=== PATIENT | female | born 1945 ===

== ENCOUNTER 2017-09-04 12:58 | Inpatient (IN) | payer MEDICARE ==
[2017-09-04 14:41] VITALS: BMI 22.6
--- NOTE | 2017-09-04 21:13 | CP.PCM.HP ---
History of Present Illness - History of Present Illness History of Present Illness: CC: CVA HPI: This is a 71 y/o female with HTN, DM2, HLD and gastritis who comes from [facility], where she was admitted 08/29/2017 for what appears to be acute R pontine infarction with L sided LUE/LE weakness. Briefly, she came to the ER c/ o SANTILLAN/dizziness/L sided weakness/numbess. She did not received TPA, but was started on Plavix and Lipitor. Patient has no complaints currently -- denies CP/ SOB/f/c/n/v/d. ROS: 14 pt. ROS performed, negative other than HPI MHx: HTN, DM2, HLD, gastritis SHx: Hysterectomy Allergies: ASA Medications: as per med list Family Hx: reviewed, noncontrib Social Hx: Lives at home, no tobacco, no EtOH Surrogate: brother, info on chart MRI, carotids and echo in chart from [facility]; Present on Admission - Present on Admission Any Indicators Present on Admission: No Past Patient History - Infectious Disease Hx of Infectious Diseases: None - Past Medical History & Family History Past Medical History?: Yes - Past Social History Smoking Status: Never Smoked - CARDIAC Hx Hypercholesterolemia: Yes Hx Hypertension: Yes - PULMONARY Hx Respiratory Disorders: No - NEUROLOGICAL Hx Neurological Disorder: No - HEENT Hx HEENT Problems: No - RENAL Hx Chronic Kidney Disease: No - ENDOCRINE/METABOLIC Hx Diabetes Mellitus Type 2: Yes (NIDDM) - HEMATOLOGICAL/ONCOLOGICAL Hx Blood Disorders: No - INTEGUMENTARY Hx Dermatological Problems: Yes Other/Comment: 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 - MUSCULOSKELETAL/RHEUMATOLOGICAL Hx Musculoskeletal Disorders: No - GASTROINTESTINAL Hx Gastritis: Yes - GENITOURINARY/GYNECOLOGICAL Hx Genitourinary Disorders: No - PSYCHIATRIC Hx Psychophysiologic Disorder: No Hx Substance Use: No - SURGICAL HISTORY Hx Hysterectomy: Yes Other/Comment: CYST REMOVED RIGHT LEG - ANESTHESIA Hx Anesthesia: Yes Hx Anesthesia Reactions: No Hx Malignant Hyperthermia: No Meds Allergies/Adverse Reactions: Allergies Allergy/AdvReac Type Severity Reaction Status Date / Time aspirin AdvReac Intermediate ITCHING Verified 09/04/17 20:11 Physical Exam - Constitutional Appears: No Acute Distress - Head Exam Head Exam: ATRAUMATIC, NORMOCEPHALIC - Eye Exam Eye Exam: EOMI, PERRL - ENT Exam ENT Exam: Mucous Membranes Moist - Neck Exam Neck exam: Positive for: Full Rom - Respiratory Exam Respiratory Exam: Clear to Auscultation Bilateral, NORMAL BREATHING PATTERN - Cardiovascular Exam Cardiovascular Exam: REGULAR RHYTHM, +S1, +S2 - GI/Abdominal Exam GI & Abdominal Exam: Normal Bowel Sounds, Soft - Extremities Exam Additional comments: strength 0-1/5 in LUE and LLE - Neurological Exam Neurological exam: Alert, CN II-XII Intact, Oriented x3 Additional comments: L sided deficits as noted - Psychiatric Exam Psychiatric exam: Normal Affect, Normal Mood - Skin Skin Exam: Dry, Warm Assessment & Plan (1) Acute CVA (cerebrovascular accident) Assessment and Plan: 71 y/o female with acute R sided CVA with L sided deficits. 1) Acute CVA -Cont Plavix, Statin -PT/OT -Rehab consult -Consider neuro consult for f/u [facility] 2) HTN -- cont current medical regimen from [place] 3) DM2 -Cont LA/SSI regimen with qid ACHS accuchecks -DM diet -Can transition to oral hypoglycemics if patient is taking PO consistently over next few days 4) DVT PPx -- SQ Lovenox Status: Acute (2) HTN (hypertension) Status: Acute (3) DM2 (diabetes mellitus, type 2) Status: Acute (4) HLD (hyperlipidemia) Status: Acute (5) DVT prophylaxis Status: Acute
[2017-09-04] MEDS ORDERED: Patient's Own Med (Famotidine [Pepcid] 40 MG) PO SCH (22:00)
[2017-09-04] MEDS: Insulin Lispro (humaLOG) 100 Units/ml Inj SC SCH (23:17)
[2017-09-05] MEDS: Insulin Lispro (humaLOG) 100 Units/ml Inj SC SCH ×4 (07:30→21:41)
[2017-09-05] MEDS: Enoxaparin 40 mg Syringe SC SCH (08:38)
[2017-09-05] MEDS ORDERED: Patient's Own Med (Insulin Detemir [Levemir] 10 UNIT) SC SCH (09:00)
[2017-09-05] MEDS: Insulin Detemir 100 Units/ml Inj SC SCH (10:00)
--- NOTE | 2017-09-05 12:35 | PCM.OPOC ---
Physiatry Overall Plan of Care - Overall Plan of Care Estimated Length of Stay in Weeks: 3 Rehab Impairment: Mobility, Gait, Cognition, Speech, Balance, Coordination Etiologic Diagnosis: Cerebrovascular Accident - Anticipated Interventions Physical Therapy:: Yes Occupational Therapy:: Yes Speech Therapy:: Yes Recreational Therapy:: Yes - Therapy Goals Bed Mobility: Independent Ambulation: Independent Functional Positional Changes:: Independent - Discharge Plan Identification of Barriers to Discharge: Home Situation Discharge Destination: Home
--- NOTE | 2017-09-05 12:38 | CP.PCM.PN ---
Subjective - Date & Time of Evaluation Date of Evaluation: 09/05/17 Time of Evaluation: 10:30 - Subjective Subjective: no acute complaints at present Objective - Vital Signs/Intake and Output Vital Signs (last 24 hours): Temp Pulse Resp BP Pulse Ox 97.5 F L 72 20 143/60 98 09/05/17 08:05 09/05/17 09:21 09/05/17 08:05 09/05/17 09:21 09/05/17 08:05 - Medications Medications: Current Medications Acetaminophen (Tylenol 325mg Tab) 650 mg PO Q6H PRN PRN Reason: Pain, moderate (4-7) Amlodipine Besylate (Norvasc) 10 mg PO DAILY [facility] Last Admin: 09/05/17 08:37 Dose: 10 mg Atorvastatin Calcium (Lipitor) 80 mg PO DIN [facility] Clonidine HCl (Catapres-Tts3 0.3 Mg/24 Hr) 1 patch TD Q7D [facility] Clopidogrel Bisulfate (Plavix) 75 mg PO DAILY [facility] Last Admin: 09/05/17 08:38 Dose: 75 mg Enoxaparin Sodium (Lovenox) 40 mg SC DAILY [facility] PRN Reason: Protocol Last Admin: 09/05/17 08:38 Dose: 40 mg Famotidine (Pepcid) 40 mg PO HS [facility] Last Admin: 09/04/17 22:57 Dose: 40 mg Hydrochlorothiazide (Hydrodiuril) 50 mg PO DAILY [facility] Last Admin: 09/05/17 09:22 Dose: 50 mg Insulin Detemir (Levemir) 10 units SC DAILY [facility] Last Admin: 09/05/17 10:00 Dose: 10 units Insulin Human Lispro (Humalog) 0 units SC [facility] PRN Reason: Protocol Last Admin: 09/05/17 11:32 Dose: 3 units Loratadine (Claritin) 10 mg PO DAILY [facility] Last Admin: 09/05/17 08:40 Dose: 10 mg Losartan Potassium (Cozaar) 100 mg PO DAILY [facility] Last Admin: 09/05/17 09:21 Dose: 100 mg Metoprolol Tartrate (Lopressor) 50 mg PO TID [facility] Last Admin: 09/05/17 08:38 Dose: 50 mg Montelukast Sodium (Singulair) 10 mg PO HS [facility] Last Admin: 09/04/17 22:57 Dose: 10 mg Olopatadine HCl (Patanol 0.1% Opht Soln) 2 drop OU TID PRN PRN Reason: Allergy symptoms - Head Exam Head Exam: ATRAUMATIC, NORMAL INSPECTION, NORMOCEPHALIC - Eye Exam Eye Exam: EOMI, Normal appearance, PERRL Pupil Exam: NORMAL ACCOMODATION - ENT Exam ENT Exam: Mucous Membranes Moist, Normal Exam - Neck Exam Neck Exam: Normal Inspection - Respiratory Exam Respiratory Exam: NORMAL BREATHING PATTERN - Cardiovascular Exam Cardiovascular Exam: REGULAR RHYTHM - GI/Abdominal Exam GI & Abdominal Exam: Soft, Normal Bowel Sounds - Rectal Exam Rectal Exam: NORMAL INSPECTION - Exam External exam: NORMAL EXTERNAL EXAM - Extremities Exam Extremities Exam: Full ROM, Normal Capillary Refill - Back Exam Back Exam: NORMAL INSPECTION - Neurological Exam Neurological Exam: Alert, Awake Neuro motor strength exam: Left Upper Extremity: 2/1, Right Upper Extremity: 3, Left Lower Extremity: 2/1, Right Lower Extremity: 3 - Psychiatric Exam Psychiatric exam: Normal Affect, Normal Mood - Skin Skin Exam: Dry, Intact Assessment and Plan (1) Acute CVA (cerebrovascular accident) Assessment & Plan: plan for physical, occupational, rec and speech therapy Status: Acute (2) Contusion Status: Acute (3) Contusion, hip Status: Acute (4) Diabetes mellitus with hyperglycemia Status: Acute (5) DM2 (diabetes mellitus, type 2) Status: Acute (6) DVT prophylaxis Status: Acute (7) Fracture of bone Status: Acute (8) Hemiparesis affecting left side as late effect of cerebrovascular accident Status: Acute (9) HLD (hyperlipidemia) Status: Acute (10) HTN (hypertension) Status: Acute
--- NOTE | 2017-09-05 12:40 | CP.PCM.CON ---
History of Present Illness - History of Present Illness History of Present Illness: 71 year old female with acute CVA admitted for acute rehab, status post dizziness and left sided weakness Review of Systems - Neurological Neurological: Abnormal Gait, Dizziness, Weakness Past Patient History - Infectious Disease Hx of Infectious Diseases: None - Past Medical History & Family History Past Medical History?: Yes - Past Social History Smoking Status: Never Smoked - CARDIAC Hx Hypertension: Yes - PULMONARY Hx Respiratory Disorders: No - NEUROLOGICAL Hx Neurological Disorder: Yes HX Cerebrovascular Accident: Yes - HEENT Hx HEENT Problems: Yes Other/Comment: hx right eye surgery-macular - RENAL Hx Chronic Kidney Disease: No - ENDOCRINE/METABOLIC Hx Diabetes Mellitus Type 2: Yes - HEMATOLOGICAL/ONCOLOGICAL Hx AIDS: No Hx Human Immunodeficiency Virus (HIV): No Other/Comment: hx of Leucocytosis - INTEGUMENTARY Hx Dermatological Problems: Yes Other/Comment: 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 - MUSCULOSKELETAL/RHEUMATOLOGICAL Hx Falls: Yes (2005;July 2017) - GASTROINTESTINAL Hx Gastrointestinal Disorders: Yes Hx Gastritis: Yes - GENITOURINARY/GYNECOLOGICAL Hx Genitourinary Disorders: No - PSYCHIATRIC Hx Psychophysiologic Disorder: No Hx Substance Use: No - SURGICAL HISTORY Hx Hysterectomy: Yes Other/Comment: pus removed from left leg - ANESTHESIA Hx Anesthesia: Yes Hx Anesthesia Reactions: No Hx Malignant Hyperthermia: No Meds Allergies/Adverse Reactions: Allergies Allergy/AdvReac Type Severity Reaction Status Date / Time aspirin AdvReac Intermediate ITCHING Verified 09/04/17 20:11 - Medications Medications: Current Medications Acetaminophen (Tylenol 325mg Tab) 650 mg PO Q6H PRN PRN Reason: Pain, moderate (4-7) Amlodipine Besylate (Norvasc) 10 mg PO DAILY [facility] Last Admin: 09/05/17 08:37 Dose: 10 mg Atorvastatin Calcium (Lipitor) 80 mg PO DIN [facility] Clonidine HCl (Catapres-Tts3 0.3 Mg/24 Hr) 1 patch TD Q7D [facility] Clopidogrel Bisulfate (Plavix) 75 mg PO DAILY [facility] Last Admin: 09/05/17 08:38 Dose: 75 mg Enoxaparin Sodium (Lovenox) 40 mg SC DAILY [facility] PRN Reason: Protocol Last Admin: 09/05/17 08:38 Dose: 40 mg Famotidine (Pepcid) 40 mg PO HS [facility] Last Admin: 09/04/17 22:57 Dose: 40 mg Hydrochlorothiazide (Hydrodiuril) 50 mg PO DAILY [facility] Last Admin: 09/05/17 09:22 Dose: 50 mg Insulin Detemir (Levemir) 10 units SC DAILY [facility] Last Admin: 09/05/17 10:00 Dose: 10 units Insulin Human Lispro (Humalog) 0 units SC ACHS [facility] PRN Reason: Protocol Last Admin: 09/05/17 11:32 Dose: 3 units Loratadine (Claritin) 10 mg PO DAILY [facility] Last Admin: 09/05/17 08:40 Dose: 10 mg Losartan Potassium (Cozaar) 100 mg PO DAILY [facility] Last Admin: 09/05/17 09:21 Dose: 100 mg Metoprolol Tartrate (Lopressor) 50 mg PO TID [facility] Last Admin: 09/05/17 08:38 Dose: 50 mg Montelukast Sodium (Singulair) 10 mg PO HS [facility] Last Admin: 09/04/17 22:57 Dose: 10 mg Olopatadine HCl (Patanol 0.1% Opht Soln) 2 drop OU TID PRN PRN Reason: Allergy symptoms Physical Exam - Head Exam Head Exam: ATRAUMATIC, NORMAL INSPECTION, NORMOCEPHALIC - Eye Exam Eye Exam: EOMI, Normal appearance, PERRL Pupil Exam: NORMAL ACCOMODATION - ENT Exam ENT Exam: Mucous Membranes Moist, Normal Exam - Respiratory Exam Respiratory Exam: Clear to Auscultation Bilateral, NORMAL BREATHING PATTERN - Cardiovascular Exam Cardiovascular Exam: REGULAR RHYTHM - GI/Abdominal Exam GI & Abdominal Exam: Normal Bowel Sounds - Exam External exam: NORMAL EXTERNAL EXAM - Extremities Exam Extremities exam: Positive for: normal inspection - Back Exam Back exam: NORMAL INSPECTION - Neurological Exam Neurological exam: Alert, CN II-XII Intact Additional comments: left sided weakness, flaccid and muscle strenght 2/5 also has speech needs. - Psychiatric Exam Psychiatric exam: Normal Affect, Normal Mood - Skin Skin Exam: Dry, Intact Results - Vital Signs Recent Vital Signs: Last Vital Signs Temp 97.5 F L 09/05/17 08:05 Pulse 72 09/05/17 09:21 Resp 20 09/05/17 08:05 BP 143/60 09/05/17 09:21 Pulse Ox 98 09/05/17 08:05 - Labs Labs: Laboratory Results - last 24 hr 09/04/17 09/05/17 22:18 05:35 POC Glucose (mg/dL) 189 H 244 H Assessment & Plan (1) Acute CVA (cerebrovascular accident) Assessment and Plan: plan for physical, occupational, rec and speech therapy program Status: Acute (2) Contusion Status: Acute (3) Contusion, hip Status: Acute (4) Diabetes mellitus with hyperglycemia Status: Acute (5) DM2 (diabetes mellitus, type 2) Status: Acute (6) DVT prophylaxis Status: Acute (7) Fracture of bone Status: Acute (8) Hemiparesis affecting left side as late effect of cerebrovascular accident Status: Acute (9) HLD (hyperlipidemia) Status: Acute (10) HTN (hypertension) Status: Acute
[2017-09-05] MEDS ORDERED: Patient's Own Med (Atorvastatin [Lipitor] 80 MG) PO SCH (17:00)
[2017-09-06] MEDS: Insulin Lispro (humaLOG) 100 Units/ml Inj SC SCH ×4 (07:29→21:31)
[2017-09-06] MEDS: Enoxaparin 40 mg Syringe SC SCH (08:28)
[2017-09-06] MEDS: Insulin Detemir 100 Units/ml Inj SC SCH (08:30)
[2017-09-06] MEDS: Olopatadine 0.1% Opht SOLN OU PRN (08:39)
--- NOTE | 2017-09-06 09:45 | CP.PCM.CON ---
History of Present Illness - History of Present Illness History of Present Illness: Pt is a 71 year old female admitted to [facility] following a CVA. Pt reported a second CVA when in the ER and past CVA's. Med history also positive for DM, HTN,. Social History: Pt lives in [place] with a roommate. Pt is and she has one son. Pt reported positive relationships with her three brothers and 1 sister. Her brother resides in [place]- others in the [facility]. Ed/Voc: pt raised in the [facility], college graduate, worked for [employer]. Psych- Pt reported past intervention due to marital tensions in the 1979:s, no history of alc/sub abuse, no recent treatment. 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 MSE: Pt alert, oriented x3, relevat/coherent, no psychosis, affect constricted, mood depressed/anxious, no si no hi ideation. pt tearful over current status and dependency, cognitive strategies introduced/reviewed to reduce distress. Dx: Adjustment dx with Anxiety and Depression plan: Continued Sup therapy Past Patient History - Infectious Disease Hx of Infectious Diseases: None - Past Medical History & Family History Past Medical History?: Yes - Past Social History Smoking Status: Never Smoked - CARDIAC Hx Hypertension: Yes - PULMONARY Hx Respiratory Disorders: No - NEUROLOGICAL Hx Neurological Disorder: Yes HX Cerebrovascular Accident: Yes - HEENT Hx HEENT Problems: Yes Other/Comment: hx right eye surgery-macular - RENAL Hx Chronic Kidney Disease: No - ENDOCRINE/METABOLIC Hx Diabetes Mellitus Type 2: Yes - HEMATOLOGICAL/ONCOLOGICAL Hx AIDS: No Hx Human Immunodeficiency Virus (HIV): No Other/Comment: hx of Leucocytosis - INTEGUMENTARY Hx Dermatological Problems: Yes Other/Comment: 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 - MUSCULOSKELETAL/RHEUMATOLOGICAL Hx Falls: Yes (2005;July 2017) - GASTROINTESTINAL Hx Gastrointestinal Disorders: Yes Hx Gastritis: Yes - GENITOURINARY/GYNECOLOGICAL Hx Genitourinary Disorders: No - PSYCHIATRIC Hx Psychophysiologic Disorder: No Hx Substance Use: No - SURGICAL HISTORY Hx Hysterectomy: Yes Other/Comment: pus removed from left leg - ANESTHESIA Hx Anesthesia: Yes Hx Anesthesia Reactions: No Hx Malignant Hyperthermia: No Meds Allergies/Adverse Reactions: Allergies Allergy/AdvReac Type Severity Reaction Status Date / Time aspirin AdvReac Intermediate ITCHING Verified 09/04/17 20:11 - Medications Medications: Current Medications Acetaminophen (Tylenol 325mg Tab) 650 mg PO Q6H PRN PRN Reason: Pain, moderate (4-7) Last Admin: 09/05/17 16:26 Dose: 650 mg Amlodipine Besylate (Norvasc) 10 mg PO DAILY [facility] Last Admin: 09/06/17 08:29 Dose: 10 mg Atorvastatin Calcium (Lipitor) 80 mg PO DIN [facility] Last Admin: 09/05/17 16:28 Dose: 80 mg Clonidine HCl (Catapres-Tts3 0.3 Mg/24 Hr) 1 patch TD Q7D [facility] Last Admin: 09/05/17 12:00 Dose: 1 patch Clopidogrel Bisulfate (Plavix) 75 mg PO DAILY [facility] Last Admin: 09/06/17 08:29 Dose: 75 mg Enoxaparin Sodium (Lovenox) 40 mg SC DAILY [facility] PRN Reason: Protocol Last Admin: 09/06/17 08:28 Dose: 40 mg Famotidine (Pepcid) 40 mg PO [facility] Last Admin: 09/05/17 21:36 Dose: 40 mg Hydrochlorothiazide (Hydrodiuril) 50 mg PO DAILY [facility] Last Admin: 09/06/17 08:32 Dose: 50 mg Insulin Detemir (Levemir) 10 units SC DAILY [facility] Last Admin: 09/06/17 08:30 Dose: 10 units Insulin Human Lispro (Humalog) 0 units SC ACHS [facility] PRN Reason: Protocol Last Admin: 09/06/17 07:29 Dose: 2 units Loratadine (Claritin) 10 mg PO DAILY [facility] Last Admin: 09/06/17 08:31 Dose: 10 mg Losartan Potassium (Cozaar) 100 mg PO DAILY [facility] Last Admin: 09/06/17 08:32 Dose: 100 mg Metoprolol Tartrate (Lopressor) 50 mg PO TID [facility] Last Admin: 09/06/17 08:29 Dose: 50 mg Montelukast Sodium (Singulair) 10 mg PO HS [facility] Last Admin: 09/05/17 21:36 Dose: 10 mg Olopatadine HCl (Patanol 0.1% Opht Soln) 2 drop OU TID PRN PRN Reason: Allergy symptoms Last Admin: 09/06/17 08:39 Dose: 2 % Results - Vital Signs Recent Vital Signs: Last Vital Signs Temp 97.3 F L 09/06/17 07:56 Pulse 69 09/06/17 08:32 Resp 20 09/06/17 07:56 BP 150/60 09/06/17 08:32 Pulse Ox 97 09/06/17 07:56 - Labs Labs: Laboratory Results - last 24 hr 09/05/17 09/05/17 09/05/17 10:57 15:31 21:26 POC Glucose (mg/dL) 274 H 234 H 231 H 09/06/17 06:41 POC Glucose (mg/dL) 230 H
[2017-09-07] MEDS: Insulin Lispro (humaLOG) 100 Units/ml Inj SC SCH ×4 (07:07→21:30)
[2017-09-07] MEDS: Insulin Detemir 100 Units/ml Inj SC SCH (09:07)
[2017-09-07] MEDS: Enoxaparin 40 mg Syringe SC SCH (09:08)
--- NOTE | 2017-09-07 10:32 | CP.PCM.PN ---
Subjective - Date & Time of Evaluation Date of Evaluation: 09/07/17 Time of Evaluation: 10:32 - Subjective Subjective: patient participating in PT OT well HD stable nad no cp sob calf tenderness Objective - Vital Signs/Intake and Output Vital Signs (last 24 hours): Temp Pulse Resp BP Pulse Ox 97.7 F 72 19 138/56 L 97 09/07/17 09:03 09/07/17 09:08 09/07/17 09:03 09/07/17 09:08 09/07/17 09:03 Constitutional- cooperative, awake, alert. Head- NCAT, PERRL Eye- PERRL, normal accommodation ENT- normal exam, MMM. Neck- normal inspection, supple, no JVD Respiratory- CTAB, no wheezes rales rhonchi Cardiovascular- RRR, +S1, +S2 no MRG GI/Abdominal- normal bowel sounds, soft Skin- warm, dry Extremities Exam- normal capillary refill, normal inspection Neurological Exam- alert, oriented Psych- normal mood, normal affect - Medications Medications: Current Medications Acetaminophen (Tylenol 325mg Tab) 650 mg PO Q6H PRN PRN Reason: Pain, moderate (4-7) Last Admin: 09/06/17 23:10 Dose: 650 mg Amlodipine Besylate (Norvasc) 10 mg PO DAILY [facility] Last Admin: 09/07/17 09:08 Dose: 10 mg Atorvastatin Calcium (Lipitor) 80 mg PO HS [facility] Clonidine HCl (Catapres-Tts3 0.3 Mg/24 Hr) 1 patch TD Q7D [facility] Last Admin: 09/05/17 12:00 Dose: 1 patch Clopidogrel Bisulfate (Plavix) 75 mg PO DAILY [facility] Last Admin: 09/07/17 09:08 Dose: 75 mg Enoxaparin Sodium (Lovenox) 40 mg SC DAILY [facility] PRN Reason: Protocol Last Admin: 09/07/17 09:08 Dose: 40 mg Famotidine (Pepcid) 40 mg PO HS [facility] Last Admin: 09/06/17 21:30 Dose: 40 mg Hydrochlorothiazide (Hydrodiuril) 50 mg PO DAILY [facility] Last Admin: 09/07/17 09:06 Dose: 50 mg Insulin Detemir (Levemir) 10 units SC DAILY [facility] Last Admin: 09/07/17 09:07 Dose: 10 units Insulin Human Lispro (Humalog) 0 units SC ACHS [facility] PRN Reason: Protocol Last Admin: 09/07/17 07:07 Dose: 2 units Loratadine (Claritin) 10 mg PO DAILY [facility] Last Admin: 09/07/17 09:05 Dose: 10 mg Losartan Potassium (Cozaar) 100 mg PO DAILY [facility] Last Admin: 09/07/17 09:06 Dose: 100 mg Metoprolol Tartrate (Lopressor) 50 mg PO Q8 [facility] Montelukast Sodium (Singulair) 10 mg PO HS [facility] Last Admin: 09/06/17 21:30 Dose: 10 mg Olopatadine HCl (Patanol 0.1% Opht Soln) 2 drop OU TID PRN PRN Reason: Allergy symptoms Last Admin: 09/06/17 08:39 Dose: 2 % Assessment and Plan - Assessment and Plan (Free Text) Plan: 71 y/o female with acute R sided CVA with L sided deficits. 1) Acute CVA -Cont Plavix, Statin -PT/OT -Rehab consult -Consider neuro consult for f/u [facility] 2) HTN -cont current medical regimen from [place] 3) DM2 -Cont LA/SSI regimen with qid ACHS accuchecks -DM diet -restart oral antihypogycemics and levemir 4) DVT PPx - SQ Lovenox
--- NOTE | 2017-09-07 13:56 | CON ---
DATE: 09/07/2017 NEUROLOGY CONSULTATION CHIEF COMPLAINT: Left-sided weakness, status post right pontine infarct. HISTORY OF PRESENT ILLNESS: This is a 71-year-old woman who is well known to me from [facility] who I saw on 08/29/2017 and also before she got discharged to rehab at [facility], with past medical history of uncontrolled type 2 diabetes, dyslipidemia, and hypertension, who initially presented to [facility] with transient left arm weakness and leg weakness and numbness and dysarthria, found to have hypertensive urgency with systolic blood pressure more than 200, underwent blood pressure control. Blood pressure throughout the hospital was very permissive and therefore was slowly brought down by Cardiology with blood pressure medication adjustments and she had an MRI of the brain causing an acute right parasagittal mid pontine infarct. Her carotid Doppler was 40% to 59% proximal bilateral ICA stenosis with vertebral artery. Her A1c at that time was 7.6. Currently, she is on aspirin, Plavix, and atorvastatin of 80 mg for stroke prevention in acute rehab at [facility] for left-sided weakness for PT and OT. No acute events overnight. PAST MEDICAL HISTORY: History of type 2 diabetes mellitus, hypertension, and dyslipidemia. REVIEW OF SYSTEMS: A 14-point review of systems negative except in the HPI. SOCIAL HISTORY: No illicit drug use, smoking, or EtOH abuse. FAMILY HISTORY: Noncontributory. PHYSICAL EXAMINATION: VITAL SIGNS: Temperature 97.2, pulse rate of 72, blood pressure 138/56, respiratory rate of 19, oxygen saturation of 97% by room air. GENERAL: The patient is sitting up in bed, in no acute distress. HEENT: Head is atraumatic and normocephalic. PERRLA. Extraocular muscles are intact. NECK: Supple. No JVD. No adenopathy noted. LUNGS: Clear to auscultation. No adventitious sounds. HEART: S1 and S2. Normal rate and rhythm. No murmurs, rubs, or gallops. ABDOMEN: Soft, nontender, and nondistended. Bowel sounds are present. EXTREMITIES: No clubbing. No cyanosis. Peripheral pulses 2+ bilaterally. NEUROLOGIC: The patient is alert and oriented to person, place, month, and year. Speech is fluent without any errors slight dysarthria. Cranial nerves II through XII are intact except for some mild left nasolabial fold flattening. Motor: Right side intact. Left upper and lower extremities 4/5. Toes are upgoing bilaterally. Sensory: Decreased light touch and pinprick up to the calves bilaterally. Decreased vibration of the toes. DTRs are 2+ throughout, 1 at both knees and ankles. Coordination: [id number] intact on the right, but difficult on the left due to left upper extremity weakness. Gait is deferred for now. LABORATORY DATA: Today's labs, blood sugar is 288. ASSESSMENT AND PLAN: This is a 71-year-old woman with past medical history of type 2 diabetes mellitus, dyslipidemia, and hypertension who presented to [facility] with left arm and left leg weakness and numbness and dysarthria, found to have hypertensive urgency with systolic blood pressure more than 200 which was eventually brought down with various blood pressure medications per Cardiology and patient was found to have an acute right parasagittal large mid pontine infarct which was secondary to diffuse atherosclerotic disease and uncontrolled hypertension. At this time, she has residual left-sided weakness and needs acute rehab at [facility]. At this time, we recommend: 1. Continue with aspirin 81 and Plavix 75 mg and atorvastatin 80 mg for stroke prevention. 2. Diabetic diet to keep blood sugar between 140 to 180. 3. Keep blood pressure between 120 to 130 mmHg and continue with her clonidine and Norvasc dosages. At this time, continue with PT and OT and acute rehab. Thank you for this consult. Benigno Jennings MD
[2017-09-07 19:15] LABS: SQUAMOUS EPITHIAL < 1 /hpf (0-5); URINE BACTERIA RARE (<OCC); URINE BILIRUBIN NEGATIVE (NEGATIVE); URINE BLOOD NEGATIVE (NEGATIVE); URINE CLARITY SLIGHTY-CLOUDY (Clear); URINE COLOR STRAW (YELLOW); URINE GLUCOSE (UA) 150 mg/dL (Normal); URINE LEUKOCYTE ESTERASE NEG Leu/uL (Negative); URINE NITRATE NEGATIVE (NEGATIVE); URINE PROTEIN NEGATIVE (NEGATIVE); URINE UROBILINOGEN 0.2-1.0 mg/dL (0.2-1.0)
[2017-09-08 06:12] LABS: HEMOGLOBIN 12.9 g/dL (12.0-16.0); MEAN CELL VOLUME 87.5 fl (81.0-99.0); MEAN CORPUSCULAR HEMOGLOBIN 28.8 pg (27.0-31.0); RBC 4.49 Mil/uL (3.80-5.20); RED CELL DISTRIBUTION WIDTH 13.5 % (11.5-14.5); WHITE BLOOD COUNT 7.6 K/uL (4.8-10.8)
[2017-09-08 06:24] LABS: BLOOD UREA NITROGEN 23 mg/dl (7-17); CALCIUM 9.2 mg/dL (8.4-10.2); GFR AFRICAN-AMERICAN > 60; GFR NON-AFRICAN AMERICAN > 60
[2017-09-08] MEDS: Insulin Lispro (humaLOG) 100 Units/ml Inj SC SCH ×4 (06:40→21:07)
[2017-09-08] MEDS: Enoxaparin 40 mg Syringe SC SCH (08:45)
[2017-09-08] MEDS: Insulin Detemir 100 Units/ml Inj SC SCH (08:48)
[2017-09-08] MEDS ORDERED: Potassium Chloride 20 mEq ER Tab PO ONE (20:30)
[2017-09-09] MEDS: Insulin Lispro (humaLOG) 100 Units/ml Inj SC SCH ×4 (06:49→21:27)
[2017-09-09] MEDS: Insulin Detemir 100 Units/ml Inj SC SCH ×2 (08:35→21:26)
[2017-09-09] MEDS: Enoxaparin 40 mg Syringe SC SCH (08:36)
--- NOTE | 2017-09-09 10:40 | CP.PCM.PN ---
Subjective - Date & Time of Evaluation Date of Evaluation: 09/09/17 Time of Evaluation: 10:39 - Subjective Subjective: TOLERATING THERAPY WELL NO COMPLAINTS AT THIS TIME NO CP SOB CALF TENDERNESS HD STABLE NAD Objective - Vital Signs/Intake and Output Vital Signs (last 24 hours): Temp Pulse Resp BP Pulse Ox 97.9 F 59 L 20 140/59 L 98 09/09/17 08:29 09/09/17 08:37 09/09/17 08:29 09/09/17 08:37 09/09/17 08:29 Constitutional- cooperative, awake, alert. Head- NCAT, PERRL Eye- PERRL, normal accommodation ENT- normal exam, MMM. Neck- normal inspection, supple, no JVD Respiratory- CTAB, no wheezes rales rhonchi Cardiovascular- RRR, +S1, +S2 no MRG GI/Abdominal- normal bowel sounds, soft Skin- warm, dry Extremities Exam- normal capillary refill, normal inspection Neurological Exam- alert, oriented Psych- normal mood, normal affect - Medications Medications: Current Medications Acetaminophen (Tylenol 325mg Tab) 650 mg PO Q6H PRN PRN Reason: Pain, moderate (4-7) Last Admin: 09/08/17 20:51 Dose: 650 mg Amlodipine Besylate (Norvasc) 10 mg PO DAILY [facility] Last Admin: 09/09/17 08:37 Dose: 10 mg Atorvastatin Calcium (Lipitor) 80 mg PO HS [facility] Last Admin: 09/08/17 21:08 Dose: 80 mg Clonidine HCl (Catapres-Tts3 0.3 Mg/24 Hr) 1 patch TD Q7D [facility] Last Admin: 09/05/17 12:00 Dose: 1 patch Clopidogrel Bisulfate (Plavix) 75 mg PO DAILY [facility] Last Admin: 09/09/17 08:37 Dose: 75 mg Enoxaparin Sodium (Lovenox) 40 mg SC DAILY [facility] PRN Reason: Protocol Last Admin: 09/09/17 08:36 Dose: 40 mg Famotidine (Pepcid) 40 mg PO HS [facility] Last Admin: 09/08/17 21:08 Dose: 40 mg Hydrochlorothiazide (Hydrodiuril) 50 mg PO DAILY [facility] Last Admin: 09/09/17 08:35 Dose: 50 mg Insulin Detemir (Levemir) 10 units SC DAILY [facility] Last Admin: 09/09/17 08:35 Dose: 10 units Insulin Human Lispro (Humalog) 0 units SC [facility] PRN Reason: Protocol Last Admin: 09/09/17 06:49 Dose: 2 units Loratadine (Claritin) 10 mg PO DAILY [facility] Last Admin: 09/08/17 08:48 Dose: 10 mg Losartan Potassium (Cozaar) 100 mg PO DAILY [facility] Last Admin: 09/09/17 08:35 Dose: 100 mg Metoprolol Tartrate (Lopressor) 50 mg PO Q8 [facility] Last Admin: 09/09/17 06:48 Dose: 50 mg Montelukast Sodium (Singulair) 10 mg PO HS [facility] Last Admin: 09/08/17 21:08 Dose: 10 mg Olopatadine HCl (Patanol 0.1% Opht Soln) 2 drop OU TID PRN PRN Reason: Allergy symptoms Last Admin: 09/06/17 08:39 Dose: 2 % - Labs Labs: 09/08/17 05:45 09/08/17 05:45 Assessment and Plan - Assessment and Plan (Free Text) Plan: 71 y/o female with acute R sided CVA with L sided deficits. 1) Acute CVA -Cont Plavix, Statin -PT/OT -Rehab consult -Consider neuro consult for f/u Dick 2) HTN -cont current medical regimen from [place] 3) DM2 -Cont LA/SSI regimen with qid ACHS accuchecks -DM diet -restart oral antihypogycemics and levemir 4) DVT PPx - SQ Lovenox
--- NOTE | 2017-09-09 11:29 | CP.PCM.PN ---
Subjective - Date & Time of Evaluation Date of Evaluation: 09/08/17 Time of Evaluation: 19:00 - Subjective Subjective: still with left sided weakness Objective - Vital Signs/Intake and Output Vital Signs (last 24 hours): Temp Pulse Resp BP Pulse Ox 97.9 F 59 L 20 140/59 L 98 09/09/17 08:29 09/09/17 08:37 09/09/17 08:29 09/09/17 08:37 09/09/17 08:29 - Medications Medications: Current Medications Acetaminophen (Tylenol 325mg Tab) 650 mg PO Q6H PRN PRN Reason: Pain, moderate (4-7) Last Admin: 09/08/17 20:51 Dose: 650 mg Amlodipine Besylate (Norvasc) 10 mg PO DAILY [facility] Last Admin: 09/09/17 08:37 Dose: 10 mg Atorvastatin Calcium (Lipitor) 80 mg PO HS [facility] Last Admin: 09/08/17 21:08 Dose: 80 mg Clonidine HCl (Catapres-Tts3 0.3 Mg/24 Hr) 1 patch TD Q7D [facility] Last Admin: 09/05/17 12:00 Dose: 1 patch Clopidogrel Bisulfate (Plavix) 75 mg PO DAILY [facility] Last Admin: 09/09/17 08:37 Dose: 75 mg Enoxaparin Sodium (Lovenox) 40 mg SC DAILY [facility] PRN Reason: Protocol Last Admin: 09/09/17 08:36 Dose: 40 mg Famotidine (Pepcid) 40 mg PO [facility] Last Admin: 09/08/17 21:08 Dose: 40 mg Insulin Detemir (Levemir) 10 units SC HS [facility] Insulin Human Lispro (Humalog) 0 units SC [facility] PRN Reason: Protocol Last Admin: 09/09/17 06:49 Dose: 2 units Loratadine (Claritin) 10 mg PO DAILY [facility] Last Admin: 09/08/17 08:48 Dose: 10 mg Losartan Potassium (Cozaar) 100 mg PO DAILY [facility] Last Admin: 09/09/17 08:35 Dose: 100 mg Metformin HCl (Glucophage) 500 mg PO BID [facility] Metoprolol Tartrate (Lopressor) 50 mg PO Q8 [facility] Last Admin: 09/09/17 06:48 Dose: 50 mg Montelukast Sodium (Singulair) 10 mg PO [facility] Last Admin: 09/08/17 21:08 Dose: 10 mg Olopatadine HCl (Patanol 0.1% Opht Soln) 2 drop OU TID PRN PRN Reason: Allergy symptoms Last Admin: 09/06/17 08:39 Dose: 2 % Sitagliptin Phosphate (Januvia) 50 mg PO DAILY [facility] - Labs Labs: 09/08/17 05:45 09/08/17 05:45 - Head Exam Head Exam: ATRAUMATIC, NORMAL INSPECTION, NORMOCEPHALIC - Eye Exam Eye Exam: EOMI, Normal appearance, PERRL Pupil Exam: NORMAL ACCOMODATION - ENT Exam ENT Exam: Mucous Membranes Moist, Normal Exam - Neck Exam Neck Exam: Normal Inspection - Respiratory Exam Respiratory Exam: NORMAL BREATHING PATTERN - Cardiovascular Exam Cardiovascular Exam: REGULAR RHYTHM - GI/Abdominal Exam GI & Abdominal Exam: Soft, Normal Bowel Sounds - Rectal Exam Rectal Exam: NORMAL INSPECTION - Neurological Exam Neuro motor strength exam: Left Upper Extremity: 2/1, Right Upper Extremity: 3, Left Lower Extremity: 2/1, Right Lower Extremity: 3 - Psychiatric Exam Psychiatric exam: Normal Affect, Normal Mood - Skin Skin Exam: Dry, Intact Assessment and Plan (1) Acute CVA (cerebrovascular accident) Assessment & Plan: plan fo rphysical, occupational, speech therapy and rec therapy Status: Acute (2) Contusion Status: Acute (3) Contusion, hip Status: Acute (4) Diabetes mellitus with hyperglycemia Status: Acute (5) DM2 (diabetes mellitus, type 2) Status: Acute (6) DVT prophylaxis Status: Acute (7) Fracture of bone Status: Acute (8) Hemiparesis affecting left side as late effect of cerebrovascular accident Status: Acute (9) HLD (hyperlipidemia) Status: Acute (10) HTN (hypertension) Status: Acute
--- NOTE | 2017-09-09 12:22 | PSY.TMCNF ---
Nursing - Vital Signs Vital Signs (Last 8 hours): Vital Signs 09/09/17 09/09/17 09/09/17 06:48 08:29 08:35 Temperature 97.9 F Pulse Rate 69 59 L 59 L Respiratory 20 Rate Blood Pressure 161/60 H 140/59 L 140/59 L O2 Sat by Pulse 98 Oximetry 09/09/17 08:37 Temperature Pulse Rate 59 L Respiratory Rate Blood Pressure 140/59 L O2 Sat by Pulse Oximetry Pain: 0 - Medications/Other Issues Comment: Pt at moderate nutritional risk. goals: 1. Pt to consume 75-100% of meals. 2. Blood glucoses to be between 70-180 mg/dl. Follow-up due on 2017 - Bladder Management Bladder Pattern: Normal Voiding Method: Toilet, Bedpan, Diaper - Bowel Management Bowel Pattern: Normal - Goals/Time Frame Comments: Pt was seen following therapy session. Pt was agreeable to visit and was able to identify her leisure interests. 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 Pt reported that she enjoys singing. Pt's mood was stable-positive although flat at times. Pt would benefit from participating in recreation therapy sessions to improve mood state and arousal level. Physical Therapy - Bed Mobility Bed Mobility: Maximum Assistance - Transfers Wheelchair to Mat: Maximum Assistance Sit to Stand: Moderate Assistance - Ambulation Level of Assistance: Maximum Assistance Distance (ft.): 15 Comment: gait trials using R wallbar in hallway - Stair Negotiation Stairs: Level of Assistance: Not Tested - Standing Balance Static Stand: Moderate Assistance Dynamic Stand: Unable to assess/perform - Pain Pain (assessed during therapy session): 0 - Insight/Carryover Insight/Carryover: Good - Patient/Family Education Comment: Pt education provided for increased safety awareness and proper techniques during functional mobility training. - Assessment/Plan Assessment: Pt is actively participating in PT tx sessions focusing on BLE strengthening exercises, balance and endurance activities, and functional mobility training. Pt currently requires max A for bed mobility, max A for stand pivot transfers, mod A for sit < > stand transfers, max A for ambulating up to 15 ft. Pt is tolerating E-stim to LLE. Pt will continue to benefit from skilled PT intervention to address deficits, reduce fall risk, and maximize functional independence. - Goals Timeframe: 3 weeks Goals: Sit < > supine with CGA. Sit < > stand transfers CGA with quad cane. Bed < > chair transfers CGA. Pt will ambulate 100 ft with quad cane and min A - Provider Therapist: Tiffanie Do PT DPT License Number: [id number] Occupational Therapy - Arousal/Attention/Orientation Patient Orientation: Person, Place, Time, Appropriate to Age, Appropriate to Situation - ADL/IADL Self Feeding: Minimal Assistance Grooming: Moderate Assistance Dressing-Upper Extremity: Maximum Assistance Dressing-Lower Extremity: Maximum Assistance, Dependent - Sitting Balance Static Sitting: Contact Guard Assist Dynamic Sitting: Minimal Assistance Comment: seated unsupported at edge of bed - Transfers Wheelchair to Bed Transfers: Verbal Cues, Set-up Help, Moderate Assistance Toilet Transfers: Verbal Cues, Set-up Help, Moderate Assistance - Upper Extremity Status Right Upper Extremity Comment: AROM is WNLS; strength 4/5 Left Upper Extremity Comment: PROM IN LUE is WFLS; AROM limited by impiared strength--shoulder 2-/5, elbow flex/extension: 2-/5, supination/pronation 1/5, wrist 1/5, digits 1/5 to 2-/5 inconsistent. no subluxation - Pain Pain (assessed during therapy session): 0 - Insight/Carryover Insight/Carryover: Good - Patient/Family Education Comment: Pt education provided for increased safety awareness and proper techniques during functional mobility training. - Assessment/Plan Assessment: Pt is actively participating in PT tx sessions focusing on BLE strengthening exercises, balance and endurance activities, and functional mobility training. Pt currently requires max A for bed mobility, max A for stand pivot transfers, mod A for sit < > stand transfers, max A for ambulating up to 15 ft. Pt is tolerating E-stim to LLE. Pt will continue to benefit from skilled PT intervention to address deficits, reduce fall risk, and maximize functional independence. - Goals Timeframe: 3 weeks Goals: Sit < > supine with CGA. Sit < > stand transfers CGA with quad cane. Bed < > chair transfers CGA. Pt will ambulate 100 ft with quad cane and min A - Provider Therapist: HARJIT Abraham/Nasra License Number: [id number] Speech Therapy - Consult Information Patient on Program: Yes Medical Diagnosis: CVA Treatment Diagnosis: -mild cognitive linguistic deficits. -minimal dysarthria. -suspected mild pharyngeal dysphagia - Assessment Problem Solving Impairment: Mild Memory Impairment: Mild Speech/Articulation Impairment: Mild Comment: minimal dysarthria Dysphagia/Swallowing Impairment: Mild Comment: finely chopped solids/thin liquids requested by pt - Plan Assessment: Pt is actively participating in PT tx sessions focusing on BLE strengthening exercises, balance and endurance activities, and functional mobility training. Pt currently requires max A for bed mobility, max A for stand pivot transfers, mod A for sit < > stand transfers, max A for ambulating up to 15 ft. Pt is tolerating E-stim to LLE. Pt will continue to benefit from skilled PT intervention to address deficits, reduce fall risk, and maximize functional independence. - Provider Therapist: Maegan Sinclair License Number: [id number] Recreational Therapy - Participation Participation: Participates in Individual and/or Group Sessions - Attendance Attendance: 3-5 times per week - Activities Leisure Activities: Socializing - Socialization Level of Socialization: Initiates/interacts freely with care givers and peer - Diversional Time Diversional Time: talking on phone - Assessment Assessment/Plan: Pt is actively participating in PT tx sessions focusing on BLE strengthening exercises, balance and endurance activities, and functional mobility training. Pt currently requires max A for bed mobility, max A for stand pivot transfers, mod A for sit < > stand transfers, max A for ambulating up to 15 ft. Pt is tolerating E-stim to LLE. Pt will continue to benefit from skilled PT intervention to address deficits, reduce fall risk, and maximize functional independence. - Provider Therapist: Lamar Patel, VEHICLE PAINTER #[id number] Nutrition - Current Diet Current Diet/ Supplement/ Feedings: Mech altered(finely chopped) thin liquids moderate consistent CHO - Appetite Percent Meal Consumed: 75-100% - Assessment/Goals/Time Frame Assessment/Goals/Time Frame: Pt at moderate nutritional risk. goals: 1. Pt to consume 75-100% of meals. 2. Blood glucoses to be between 70-180 mg/dl. Follow-up due on 09/12/2017 - Provider Provider: Janie Middleton RD Case Management - Discharge Plan Discharge Plan: Home with significant other/family Rehabilitation Plan - Treatment Plan Treatment Plan: Physical Therapy, Occupational Therapy, Speech, Dietary, Patient /Family Education - Recommendation Recommendation: Physical Therapy, Occupational Therapy, Speech, Dietary, Patient /Family Education - Discharge Plan Discharge to: Home (29)
--- NOTE | 2017-09-09 13:00 | CP.PCM.PN ---
Subjective - Date & Time of Evaluation Date of Evaluation: 09/09/17 Time of Evaluation: 10:30 - Subjective Subjective: no acute neck pain mild shoulder weakness Objective - Vital Signs/Intake and Output Vital Signs (last 24 hours): Temp Pulse Resp BP Pulse Ox 97.9 F 59 L 20 140/59 L 98 09/09/17 08:29 09/09/17 08:37 09/09/17 08:29 09/09/17 08:37 09/09/17 08:29 - Medications Medications: Current Medications Acetaminophen (Tylenol 325mg Tab) 650 mg PO Q6H PRN PRN Reason: Pain, moderate (4-7) Last Admin: 09/08/17 20:51 Dose: 650 mg Amlodipine Besylate (Norvasc) 10 mg PO DAILY [facility] Last Admin: 09/09/17 08:37 Dose: 10 mg Atorvastatin Calcium (Lipitor) 80 mg PO HS [facility] Last Admin: 09/08/17 21:08 Dose: 80 mg Clonidine HCl (Catapres-Tts3 0.3 Mg/24 Hr) 1 patch TD Q7D [facility] Last Admin: 09/05/17 12:00 Dose: 1 patch Clopidogrel Bisulfate (Plavix) 75 mg PO DAILY [facility] Last Admin: 09/09/17 08:37 Dose: 75 mg Enoxaparin Sodium (Lovenox) 40 mg SC DAILY [facility] PRN Reason: Protocol Last Admin: 09/09/17 08:36 Dose: 40 mg Famotidine (Pepcid) 40 mg PO [facility] Last Admin: 09/08/17 21:08 Dose: 40 mg Insulin Detemir (Levemir) 10 units SC [facility] Insulin Human Lispro (Humalog) 0 units SC [facility] PRN Reason: Protocol Last Admin: 09/09/17 11:43 Dose: 4 units Loratadine (Claritin) 10 mg PO DAILY [facility] Last Admin: 09/09/17 11:43 Dose: 10 mg Losartan Potassium (Cozaar) 100 mg PO DAILY [facility] Last Admin: 09/09/17 08:35 Dose: 100 mg Metformin HCl (Glucophage) 500 mg PO BID [facility] Metoprolol Tartrate (Lopressor) 50 mg PO Q8 [facility] Last Admin: 09/09/17 06:48 Dose: 50 mg Montelukast Sodium (Singulair) 10 mg PO [facility] Last Admin: 09/08/17 21:08 Dose: 10 mg Olopatadine HCl (Patanol 0.1% Opht Soln) 2 drop OU TID PRN PRN Reason: Allergy symptoms Last Admin: 09/06/17 08:39 Dose: 2 % Sitagliptin Phosphate (Januvia) 50 mg PO DAILY [facility] Last Admin: 09/09/17 12:41 Dose: 50 mg - Labs Labs: 09/08/17 05:45 09/08/17 05:45 - Head Exam Head Exam: ATRAUMATIC, NORMAL INSPECTION, NORMOCEPHALIC - Eye Exam Eye Exam: EOMI, Normal appearance, PERRL Pupil Exam: NORMAL ACCOMODATION - ENT Exam ENT Exam: Mucous Membranes Moist, Normal Exam - Neck Exam Neck Exam: Normal Inspection - Respiratory Exam Respiratory Exam: NORMAL BREATHING PATTERN - Cardiovascular Exam Cardiovascular Exam: REGULAR RHYTHM - GI/Abdominal Exam GI & Abdominal Exam: Soft - Rectal Exam Rectal Exam: NORMAL INSPECTION - Exam External exam: NORMAL EXTERNAL EXAM - Extremities Exam Extremities Exam: Full ROM, Normal Capillary Refill - Back Exam Back Exam: NORMAL INSPECTION - Neurological Exam Neurological Exam: Alert, Awake Neuro motor strength exam: Left Upper Extremity: 2/1, Right Upper Extremity: 3, Left Lower Extremity: 2/1, Right Lower Extremity: 3 - Psychiatric Exam Psychiatric exam: Normal Affect, Normal Mood - Skin Skin Exam: Dry, Intact Assessment and Plan (1) Acute CVA (cerebrovascular accident) Assessment & Plan: plan for physical, occupational rec and spech therapy DC for the 27 Status: Acute (2) Contusion Status: Acute (3) Contusion, hip Status: Acute (4) Diabetes mellitus with hyperglycemia Status: Acute (5) DM2 (diabetes mellitus, type 2) Status: Acute (6) DVT prophylaxis Status: Acute (7) Fracture of bone Status: Acute (8) Hemiparesis affecting left side as late effect of cerebrovascular accident Status: Acute (9) HLD (hyperlipidemia) Status: Acute (10) HTN (hypertension) Status: Acute
[2017-09-10] MEDS: Insulin Lispro (humaLOG) 100 Units/ml Inj SC SCH ×4 (06:59→21:39)
[2017-09-10] MEDS: Enoxaparin 40 mg Syringe SC SCH (09:18)
[2017-09-10] MEDS: Insulin Detemir 100 Units/ml Inj SC SCH (21:39)
[2017-09-11] MEDS: Insulin Lispro (humaLOG) 100 Units/ml Inj SC SCH ×4 (07:04→21:00)
[2017-09-11] MEDS: Enoxaparin 40 mg Syringe SC SCH (08:30)
[2017-09-11 10:14] LABS: BLOOD UREA NITROGEN 18 mg/dl (7-17); CALCIUM 9.2 mg/dL (8.4-10.2); GFR AFRICAN-AMERICAN > 60; GFR NON-AFRICAN AMERICAN > 60
[2017-09-11 10:20] LABS: HEMOGLOBIN 12.4 g/dL (12.0-16.0); MEAN CELL VOLUME 88.6 fl (81.0-99.0); MEAN CORPUSCULAR HEMOGLOBIN 28.9 pg (27.0-31.0); MEAN CORPUSCULAR HGB CONC 32.6 g/dL (33.0-37.0); RBC 4.31 Mil/uL (3.80-5.20); RED CELL DISTRIBUTION WIDTH 13.5 % (11.5-14.5); WHITE BLOOD COUNT 9.5 K/uL (4.8-10.8)
--- NOTE | 2017-09-11 11:48 | CP.PCM.PN ---
Subjective - Date & Time of Evaluation Date of Evaluation: 09/11/17 Time of Evaluation: 10:00 - Subjective Subjective: Patient seen and examined at bedside. States that she is doing well. Tearful today but encouraged at the thought of getting her strength back. She c/o pain with therapies and is requesting Tylenol and something for severe pain. No cp/ sob/calf tenderness. HD stable. Objective - Vital Signs/Intake and Output Vital Signs (last 24 hours): Temp Pulse Resp BP Pulse Ox 97.2 F L 67 20 140/60 97 09/11/17 07:45 09/11/17 08:31 09/11/17 07:45 09/11/17 08:31 09/11/17 07:45 - Medications Medications: Current Medications Acetaminophen (Tylenol 325mg Tab) 650 mg PO Q6H PRN PRN Reason: Pain, moderate (4-7) Last Admin: 09/10/17 21:43 Dose: 650 mg Amlodipine Besylate (Norvasc) 10 mg PO DAILY [facility] Last Admin: 09/11/17 08:31 Dose: 10 mg Atorvastatin Calcium (Lipitor) 80 mg PO HS [facility] Last Admin: 09/10/17 21:34 Dose: 80 mg Clonidine HCl (Catapres-Tts3 0.3 Mg/24 Hr) 1 patch TD Q7D [facility] Last Admin: 09/05/17 12:00 Dose: 1 patch Clopidogrel Bisulfate (Plavix) 75 mg PO DAILY [facility] Last Admin: 09/11/17 08:29 Dose: 75 mg Enoxaparin Sodium (Lovenox) 40 mg SC DAILY [facility] PRN Reason: Protocol Last Admin: 09/11/17 08:30 Dose: 40 mg Famotidine (Pepcid) 40 mg PO [facility] Last Admin: 09/10/17 21:36 Dose: 40 mg Insulin Detemir (Levemir) 10 units SC [facility] Last Admin: 09/10/17 21:39 Dose: 10 units Insulin Human Lispro (Humalog) 0 units SC [facility] PRN Reason: Protocol Last Admin: 09/11/17 07:04 Dose: 1 units Loratadine (Claritin) 10 mg PO DAILY [facility] Last Admin: 09/11/17 08:29 Dose: 10 mg Losartan Potassium (Cozaar) 100 mg PO DAILY [facility] Last Admin: 09/11/17 08:30 Dose: 100 mg Metformin HCl (Glucophage) 500 mg PO BID [facility] Last Admin: 09/11/17 08:29 Dose: 500 mg Metoprolol Tartrate (Lopressor) 50 mg PO Q8 [facility] Last Admin: 09/11/17 07:03 Dose: 50 mg Montelukast Sodium (Singulair) 10 mg PO HS [facility] Last Admin: 09/10/17 21:35 Dose: 10 mg Olopatadine HCl (Patanol 0.1% Opht Soln) 2 drop OU TID PRN PRN Reason: Allergy symptoms Last Admin: 09/06/17 08:39 Dose: 2 % Sitagliptin Phosphate (Januvia) 50 mg PO DAILY [facility] Last Admin: 09/11/17 08:29 Dose: 50 mg Tramadol HCl (Ultram) 50 mg PO Q6 PRN PRN Reason: Pain, severe (8-10) - Labs Labs: 09/11/17 09:45 09/11/17 09:45 - Additional Findings Additional findings: Constitutional- cooperative, awake, alert. Head- NCAT, PERRL Eye- PERRL, normal accommodation ENT- normal exam, MMM. Neck- normal inspection, supple, no JVD Respiratory- CTAB, no wheezes rales rhonchi Cardiovascular- RRR, +S1, +S2 no MRG GI/Abdominal- normal bowel sounds, soft Skin- warm, dry Extremities Exam- normal capillary refill, normal inspection Neurological Exam- alert, oriented Psych- normal mood, normal affect Assessment and Plan - Assessment and Plan (Free Text) Plan: 71 y/o female with acute R sided CVA with L sided deficits. 1) Acute CVA -Cont Plavix, Statin -PT/OT -Rehab consult -Consider neuro consult for f/u Dick 2) HTN -cont current medical regimen from [place] 3) DM2 -Cont LA/SSI regimen with qid ACHS accuchecks -DM diet -restart oral antihypogycemics and levemir 4) DVT PPx - SQ Lovenox
--- NOTE | 2017-09-11 12:19 | CP.PCM.CON ---
History of Present Illness - History of Present Illness History of Present Illness: Pt seen for sup therapy. Pt discussed current dysphoria over status, anxiety over her present and future. pt reflected back on her current work, very activie life, desire for remain active and questioned how that can be accomplished. Support provided over her depression/distress, cogntiive strategies introduced to reduce distress, support provided. plan: Continued Sup therapy Past Patient History - Infectious Disease Hx of Infectious Diseases: None - Past Medical History & Family History Past Medical History?: Yes - Past Social History Smoking Status: Never Smoked - CARDIAC Hx Hypertension: Yes - PULMONARY Hx Respiratory Disorders: No - NEUROLOGICAL Hx Neurological Disorder: Yes HX Cerebrovascular Accident: Yes - HEENT Hx HEENT Problems: Yes Other/Comment: hx right eye surgery-macular - RENAL Hx Chronic Kidney Disease: No - ENDOCRINE/METABOLIC Hx Diabetes Mellitus Type 2: Yes - HEMATOLOGICAL/ONCOLOGICAL Hx AIDS: No Hx Human Immunodeficiency Virus (HIV): No Other/Comment: hx of Leucocytosis - INTEGUMENTARY Hx Dermatological Problems: Yes Other/Comment: 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 - MUSCULOSKELETAL/RHEUMATOLOGICAL Hx Falls: Yes (2005;July 2017) - GASTROINTESTINAL Hx Gastrointestinal Disorders: Yes Hx Gastritis: Yes - GENITOURINARY/GYNECOLOGICAL Hx Genitourinary Disorders: No - PSYCHIATRIC Hx Psychophysiologic Disorder: No Hx Substance Use: No - SURGICAL HISTORY Hx Hysterectomy: Yes Other/Comment: pus removed from left leg - ANESTHESIA Hx Anesthesia: Yes Hx Anesthesia Reactions: No Hx Malignant Hyperthermia: No Meds Allergies/Adverse Reactions: Allergies Allergy/AdvReac Type Severity Reaction Status Date / Time aspirin AdvReac Intermediate ITCHING Verified 09/04/17 20:11 - Medications Medications: Current Medications Acetaminophen (Tylenol 325mg Tab) 650 mg PO Q6H PRN PRN Reason: Pain, moderate (4-7) Last Admin: 09/10/17 21:43 Dose: 650 mg Amlodipine Besylate (Norvasc) 10 mg PO DAILY [facility] Last Admin: 09/11/17 08:31 Dose: 10 mg Atorvastatin Calcium (Lipitor) 80 mg PO HS [facility] Last Admin: 09/10/17 21:34 Dose: 80 mg Clonidine HCl (Catapres-Tts3 0.3 Mg/24 Hr) 1 patch TD Q7D [facility] Last Admin: 09/05/17 12:00 Dose: 1 patch Clopidogrel Bisulfate (Plavix) 75 mg PO DAILY [facility] Last Admin: 09/11/17 08:29 Dose: 75 mg Enoxaparin Sodium (Lovenox) 40 mg SC DAILY [facility] PRN Reason: Protocol Last Admin: 09/11/17 08:30 Dose: 40 mg Famotidine (Pepcid) 40 mg PO [facility] Last Admin: 09/10/17 21:36 Dose: 40 mg Insulin Detemir (Levemir) 10 units SC HS [facility] Last Admin: 09/10/17 21:39 Dose: 10 units Insulin Human Lispro (Humalog) [address] [facility] PRN Reason: Protocol Last Admin: 09/11/17 07:04 Dose: 1 units Loratadine (Claritin) 10 mg PO DAILY [facility] Last Admin: 09/11/17 08:29 Dose: 10 mg Losartan Potassium (Cozaar) 100 mg PO DAILY [facility] Last Admin: 09/11/17 08:30 Dose: 100 mg Metformin HCl (Glucophage) 500 mg PO BID [facility] Last Admin: 09/11/17 08:29 Dose: 500 mg Metoprolol Tartrate (Lopressor) 50 mg PO Q8 [facility] Last Admin: 09/11/17 07:03 Dose: 50 mg Montelukast Sodium (Singulair) 10 mg PO [facility] Last Admin: 09/10/17 21:35 Dose: 10 mg Olopatadine HCl (Patanol 0.1% Opht Soln) 2 drop OU TID PRN PRN Reason: Allergy symptoms Last Admin: 09/06/17 08:39 Dose: 2 % Sitagliptin Phosphate (Januvia) 50 mg PO DAILY [facility] Last Admin: 09/11/17 08:29 Dose: 50 mg Tramadol HCl (Ultram) 50 mg PO Q6 PRN PRN Reason: Pain, severe (8-10) Results - Vital Signs Recent Vital Signs: Last Vital Signs Temp 97.2 F L 09/11/17 07:45 Pulse 67 09/11/17 08:31 Resp 20 09/11/17 07:45 BP 140/60 09/11/17 08:31 Pulse Ox 97 09/11/17 07:45 - Labs Result Diagrams: 09/11/17 09:45 09/11/17 09:45 Labs: Laboratory Results - last 24 hr 09/10/17 09/10/17 09/10/17 11:23 16:18 20:45 WBC RBC Hgb Hct MCV MCH MCHC RDW Plt Count Sodium Potassium Chloride Carbon Dioxide Anion Gap BUN Creatinine Est GFR ( Amer) Est GFR (Non-Af Amer) POC Glucose (mg/dL) 297 H 184 H 230 H Random Glucose Calcium 09/11/17 09/11/17 09/11/17 07:01 09:45 09:45 WBC 9.5 RBC 4.31 Hgb 12.4 Hct 38.2 MCV 88.6 MCH 28.9 MCHC 32.6 L RDW 13.5 Plt Count 285 Sodium 133 Potassium 4.1 Chloride 94 L Carbon Dioxide 26 Anion Gap 17 BUN 18 H Creatinine 0.5 L Est GFR ( Amer) > 60 Est GFR (Non-Af Amer) > 60 POC Glucose (mg/dL) 183 H Random Glucose 205 H Calcium 9.2
--- NOTE | 2017-09-11 12:52 | CP.PCM.PN ---
Subjective - Date & Time of Evaluation Date of Evaluation: 09/11/17 Time of Evaluation: 09:00 - Subjective Subjective: patient still with weakness of left arm and left leg Objective - Vital Signs/Intake and Output Vital Signs (last 24 hours): Temp Pulse Resp BP Pulse Ox 97.2 F L 67 20 140/60 97 09/11/17 07:45 09/11/17 08:31 09/11/17 07:45 09/11/17 08:31 09/11/17 07:45 - Medications Medications: Current Medications Acetaminophen (Tylenol 325mg Tab) 650 mg PO Q6H PRN PRN Reason: Pain, moderate (4-7) Last Admin: 09/10/17 21:43 Dose: 650 mg Amlodipine Besylate (Norvasc) 10 mg PO DAILY [facility] Last Admin: 09/11/17 08:31 Dose: 10 mg Atorvastatin Calcium (Lipitor) 80 mg PO HS [facility] Last Admin: 09/10/17 21:34 Dose: 80 mg Clonidine HCl (Catapres-Tts3 0.3 Mg/24 Hr) 1 patch TD Q7D [facility] Last Admin: 09/05/17 12:00 Dose: 1 patch Clopidogrel Bisulfate (Plavix) 75 mg PO DAILY [facility] Last Admin: 09/11/17 08:29 Dose: 75 mg Enoxaparin Sodium (Lovenox) 40 mg SC DAILY [facility] PRN Reason: Protocol Last Admin: 09/11/17 08:30 Dose: 40 mg Famotidine (Pepcid) 40 mg PO HS [facility] Last Admin: 09/10/17 21:36 Dose: 40 mg Insulin Detemir (Levemir) 10 units SC [facility] Last Admin: 09/10/17 21:39 Dose: 10 units Insulin Human Lispro (Humalog) 0 units SC [facility] PRN Reason: Protocol Last Admin: 09/11/17 12:19 Dose: 2 units Loratadine (Claritin) 10 mg PO DAILY [facility] Last Admin: 09/11/17 08:29 Dose: 10 mg Losartan Potassium (Cozaar) 100 mg PO DAILY [facility] Last Admin: 09/11/17 08:30 Dose: 100 mg Metformin HCl (Glucophage) 500 mg PO BID [facility] Last Admin: 09/11/17 08:29 Dose: 500 mg Metoprolol Tartrate (Lopressor) 50 mg PO Q8 [facility] Last Admin: 09/11/17 07:03 Dose: 50 mg Montelukast Sodium (Singulair) 10 mg PO HS [facility] Last Admin: 09/10/17 21:35 Dose: 10 mg Olopatadine HCl (Patanol 0.1% Opht Soln) 2 drop OU TID PRN PRN Reason: Allergy symptoms Last Admin: 09/06/17 08:39 Dose: 2 % Sitagliptin Phosphate (Januvia) 50 mg PO DAILY [facility] Last Admin: 09/11/17 08:29 Dose: 50 mg Tramadol HCl (Ultram) 50 mg PO Q6 PRN PRN Reason: Pain, severe (8-10) - Labs Labs: 09/11/17 09:45 09/11/17 09:45 - Head Exam Head Exam: ATRAUMATIC, NORMAL INSPECTION, NORMOCEPHALIC - Eye Exam Eye Exam: EOMI, Normal appearance, PERRL Pupil Exam: NORMAL ACCOMODATION - ENT Exam ENT Exam: Mucous Membranes Moist, Normal Exam - Neck Exam Neck Exam: Full ROM - Respiratory Exam Respiratory Exam: NORMAL BREATHING PATTERN - Cardiovascular Exam Cardiovascular Exam: REGULAR RHYTHM - GI/Abdominal Exam GI & Abdominal Exam: Soft, Normal Bowel Sounds - Rectal Exam Rectal Exam: NORMAL INSPECTION - Exam External exam: NORMAL EXTERNAL EXAM - Extremities Exam Extremities Exam: Full ROM, Normal Capillary Refill, Normal Inspection - Back Exam Back Exam: NORMAL INSPECTION - Neurological Exam Neurological Exam: Alert, Awake Neuro motor strength exam: Left Upper Extremity: 2/1, Right Upper Extremity: 3, Left Lower Extremity: 2/1, Right Lower Extremity: 3 - Psychiatric Exam Psychiatric exam: Normal Affect, Normal Mood - Skin Skin Exam: Dry, Intact Assessment and Plan (1) Acute CVA (cerebrovascular accident) Assessment & Plan: plan for physical, occupational, rec and speech therapy for E stim to the arm Status: Acute (2) Contusion Status: Acute (3) Contusion, hip Status: Acute (4) Diabetes mellitus with hyperglycemia Status: Acute (5) DM2 (diabetes mellitus, type 2) Status: Acute (6) DVT prophylaxis Status: Acute (7) Fracture of bone Status: Acute (8) Hemiparesis affecting left side as late effect of cerebrovascular accident Status: Acute (9) HLD (hyperlipidemia) Status: Acute (10) HTN (hypertension) Status: Acute
[2017-09-11] MEDS: Insulin Detemir 100 Units/ml Inj SC SCH (21:51)
[2017-09-12] MEDS: Insulin Lispro (humaLOG) 100 Units/ml Inj SC SCH ×4 (07:02→21:36)
[2017-09-12] MEDS: Enoxaparin 40 mg Syringe SC SCH (09:01)
[2017-09-12] MEDS: Insulin Detemir 100 Units/ml Inj SC SCH (21:36)
[2017-09-13] MEDS: Insulin Lispro (humaLOG) 100 Units/ml Inj SC SCH ×4 (06:36→21:14)
[2017-09-13] MEDS: Enoxaparin 40 mg Syringe SC SCH (08:46)
[2017-09-13] MEDS: Insulin Detemir 100 Units/ml Inj SC SCH (21:13)
[2017-09-14 06:20] LABS: HEMOGLOBIN 12.3 g/dL (12.0-16.0); MEAN CORPUSCULAR HEMOGLOBIN 29.5 pg (27.0-31.0); MEAN CORPUSCULAR HGB CONC 33.5 g/dL (33.0-37.0); RBC 4.19 Mil/uL (3.80-5.20); RED CELL DISTRIBUTION WIDTH 13.3 % (11.5-14.5); WHITE BLOOD COUNT 8.7 K/uL (4.8-10.8)
[2017-09-14 06:37] LABS: BLOOD UREA NITROGEN 12 mg/dl (7-17); CALCIUM 9.2 mg/dL (8.4-10.2); GFR AFRICAN-AMERICAN > 60; GFR NON-AFRICAN AMERICAN > 60
[2017-09-14] MEDS: Insulin Lispro (humaLOG) 100 Units/ml Inj SC SCH ×4 (07:00→22:03)
[2017-09-14] MEDS: Enoxaparin 40 mg Syringe SC SCH (09:08)
--- NOTE | 2017-09-14 11:05 | CP.PCM.PN ---
Subjective - Date & Time of Evaluation Date of Evaluation: 09/14/17 Time of Evaluation: 11:05 - Subjective Subjective: doing well, tolerating therapy +constipation HD stableNAD no cp sob calf tenderness Objective - Vital Signs/Intake and Output Vital Signs (last 24 hours): Temp Pulse Resp BP Pulse Ox 96.8 F L 68 18 135/55 L 98 09/14/17 08:07 09/14/17 09:08 09/14/17 08:07 09/14/17 09:08 09/14/17 08:07 Constitutional- cooperative, awake, alert. Head- NCAT, PERRL Eye- PERRL, normal accommodation ENT- normal exam, MMM. Neck- normal inspection, supple, no JVD Respiratory- CTAB, no wheezes rales rhonchi Cardiovascular- RRR, +S1, +S2 no MRG GI/Abdominal- normal bowel sounds, soft Skin- warm, dry Extremities Exam- normal capillary refill, normal inspection Neurological Exam- alert, oriented Psych- normal mood, normal affect - Medications Medications: Current Medications Acetaminophen (Tylenol 325mg Tab) 650 mg PO Q6H PRN PRN Reason: Pain, moderate (4-7) Last Admin: 09/13/17 20:50 Dose: 650 mg Amlodipine Besylate (Norvasc) 10 mg PO DAILY [facility] Last Admin: 09/14/17 09:08 Dose: 10 mg Atorvastatin Calcium (Lipitor) 80 mg PO HS [facility] Last Admin: 09/13/17 21:09 Dose: 80 mg Clonidine HCl (Catapres-Tts3 0.3 Mg/24 Hr) 1 patch TD Q7D [facility] Last Admin: 09/12/17 12:00 Dose: 1 patch Clopidogrel Bisulfate (Plavix) 75 mg PO DAILY [facility] Last Admin: 09/14/17 09:09 Dose: 75 mg Enoxaparin Sodium (Lovenox) 40 mg SC DAILY [facility] PRN Reason: Protocol Last Admin: 09/14/17 09:08 Dose: 40 mg Famotidine (Pepcid) 40 mg PO 0630 [facility] Insulin Detemir (Levemir) 10 units SC HS [facility] Last Admin: 09/13/17 21:13 Dose: 10 units Insulin Human Lispro (Humalog) 0 units SC [facility] PRN Reason: Protocol Last Admin: 09/14/17 07:00 Dose: 1 units Loratadine (Claritin) 10 mg PO DAILY [facility] Last Admin: 09/14/17 09:07 Dose: 10 mg Losartan Potassium (Cozaar) 100 mg PO DAILY [facility] Last Admin: 09/14/17 09:07 Dose: 100 mg Metformin HCl (Glucophage) 500 mg PO BID [facility] Last Admin: 09/14/17 09:07 Dose: 500 mg Metoprolol Tartrate (Lopressor) 50 mg PO Q12 [facility] Last Admin: 09/14/17 09:08 Dose: 50 mg Montelukast Sodium (Singulair) 10 mg PO HS [facility] Last Admin: 09/13/17 21:12 Dose: 10 mg Olopatadine HCl (Patanol 0.1% Opht Soln) 2 drop OU TID PRN PRN Reason: Allergy symptoms Last Admin: 09/06/17 08:39 Dose: 2 % Sitagliptin Phosphate (Januvia) 50 mg PO DAILY [facility] Last Admin: 09/14/17 09:08 Dose: 50 mg Tramadol HCl (Ultram) 50 mg PO Q6 PRN PRN Reason: Pain, severe (8-10) - Labs Labs: 09/14/17 05:20 09/14/17 05:20 Assessment and Plan - Assessment and Plan (Free Text) Plan: 71 y/o female with acute R sided CVA with L sided deficits. 1) Acute CVA -Cont Plavix, Statin -PT/OT -Rehab consult -Consider neuro consult for f/u Dick 2) HTN -cont current medical regimen from [place] 3) DM2 -Cont LA/SSI regimen with qid ACHS accuchecks -DM diet -restart oral antihypogycemics and levemir 4) DVT PPx - SQ Lovenox
[2017-09-14] MEDS ORDERED: Magnesium Hydroxide Susp 30 ml UD PO PRN (11:06)
[2017-09-14] MEDS ORDERED: Bisacodyl 5mg EC Tab PO PRN (11:06)
[2017-09-14] MEDS: Insulin Detemir 100 Units/ml Inj SC SCH (22:02)
[2017-09-15] MEDS: Insulin Lispro (humaLOG) 100 Units/ml Inj SC SCH ×4 (07:05→21:26)
[2017-09-15] MEDS: Enoxaparin 40 mg Syringe SC SCH (08:37)
--- NOTE | 2017-09-15 14:44 | CP.PCM.PN ---
Subjective - Date & Time of Evaluation Date of Evaluation: 09/12/17 Time of Evaluation: 15:10 - Subjective Subjective: no acute complaints at present Objective - Vital Signs/Intake and Output Vital Signs (last 24 hours): Temp Pulse Resp BP Pulse Ox 97.8 F 69 21 116/53 L 97 09/15/17 08:19 09/15/17 08:37 09/15/17 08:19 09/15/17 08:37 09/15/17 08:19 - Medications Medications: Current Medications Acetaminophen (Tylenol 325mg Tab) 650 mg PO Q6H PRN PRN Reason: Pain, moderate (4-7) Last Admin: 09/13/17 20:50 Dose: 650 mg Amlodipine Besylate (Norvasc) 10 mg PO DAILY [facility] Last Admin: 09/15/17 08:37 Dose: 10 mg Atorvastatin Calcium (Lipitor) 80 mg PO HS [facility] Last Admin: 09/14/17 22:01 Dose: 80 mg Bisacodyl (Dulcolax) 5 mg PO DAILY PRN PRN Reason: Constipation Clonidine HCl (Catapres-Tts3 0.3 Mg/24 Hr) 1 patch TD Q7D [facility] Last Admin: 09/12/17 12:00 Dose: 1 patch Clopidogrel Bisulfate (Plavix) 75 mg PO DAILY [facility] Last Admin: 09/15/17 08:38 Dose: 75 mg Enoxaparin Sodium (Lovenox) 40 mg SC DAILY [facility] PRN Reason: Protocol Last Admin: 09/15/17 08:37 Dose: 40 mg Famotidine (Pepcid) 40 mg PO 0630 [facility] Last Admin: 09/15/17 07:01 Dose: 40 mg Insulin Detemir (Levemir) 10 units SC [facility] Last Admin: 09/14/17 22:02 Dose: 10 units Insulin Human Lispro (Humalog) 0 units SC [facility] PRN Reason: Protocol Last Admin: 09/15/17 12:38 Dose: 2 units Loratadine (Claritin) 10 mg PO DAILY [facility] Last Admin: 09/15/17 08:36 Dose: 10 mg Losartan Potassium (Cozaar) 100 mg PO DAILY [facility] Last Admin: 09/15/17 08:36 Dose: 100 mg Magnesium Hydroxide (Milk Of Magnesia) 15 ml PO QID PRN PRN Reason: Constipation Metformin HCl (Glucophage) 500 mg PO BID [facility] Last Admin: 09/15/17 08:36 Dose: 500 mg Metoprolol Tartrate (Lopressor) 50 mg PO Q12 [facility] Last Admin: 09/15/17 08:37 Dose: 50 mg Montelukast Sodium (Singulair) 10 mg PO HS [facility] Last Admin: 09/14/17 22:02 Dose: 10 mg Olopatadine HCl (Patanol 0.1% Opht Soln) 2 drop OU TID PRN PRN Reason: Allergy symptoms Last Admin: 09/06/17 08:39 Dose: 2 % Sitagliptin Phosphate (Januvia) 50 mg PO DAILY [facility] Last Admin: 09/15/17 08:36 Dose: 50 mg Tramadol HCl (Ultram) 50 mg PO Q6 PRN PRN Reason: Pain, severe (8-10) - Labs Labs: 09/14/17 05:20 09/14/17 05:20 - Head Exam Head Exam: ATRAUMATIC, NORMAL INSPECTION, NORMOCEPHALIC - Eye Exam Eye Exam: EOMI, Normal appearance, PERRL Pupil Exam: NORMAL ACCOMODATION - ENT Exam ENT Exam: Mucous Membranes Moist, Normal Exam - Neck Exam Neck Exam: Normal Inspection - Respiratory Exam Respiratory Exam: NORMAL BREATHING PATTERN - Cardiovascular Exam Cardiovascular Exam: REGULAR RHYTHM - GI/Abdominal Exam GI & Abdominal Exam: Soft, Normal Bowel Sounds - Rectal Exam Rectal Exam: NORMAL INSPECTION - Exam External exam: NORMAL EXTERNAL EXAM - Extremities Exam Extremities Exam: Full ROM, Normal Capillary Refill - Back Exam Back Exam: NORMAL INSPECTION - Neurological Exam Neurological Exam: Alert, Awake Neuro motor strength exam: Left Upper Extremity: 2/1, Right Upper Extremity: 3, Left Lower Extremity: 2/1, Right Lower Extremity: 3 - Psychiatric Exam Psychiatric exam: Normal Affect, Normal Mood - Skin Skin Exam: Dry, Intact Assessment and Plan (1) Acute CVA (cerebrovascular accident) Assessment & Plan: plan for physical, occcupational, rec and speec therapy Status: Acute (2) Contusion Status: Acute (3) Contusion, hip Status: Acute (4) Diabetes mellitus with hyperglycemia Status: Acute (5) DM2 (diabetes mellitus, type 2) Status: Acute (6) DVT prophylaxis Status: Acute (7) Fracture of bone Status: Acute (8) Hemiparesis affecting left side as late effect of cerebrovascular accident Status: Acute (9) HLD (hyperlipidemia) Status: Acute (10) HTN (hypertension) Status: Acute
--- NOTE | 2017-09-15 14:47 | CP.PCM.PN ---
Subjective - Date & Time of Evaluation Date of Evaluation: 09/15/17 Time of Evaluation: 14:00 - Subjective Subjective: patinet complaints of yellowish phelgm, and not' feeling well' Objective - Vital Signs/Intake and Output Vital Signs (last 24 hours): Temp Pulse Resp BP Pulse Ox 97.8 F 69 21 116/53 L 97 09/15/17 08:19 09/15/17 08:37 09/15/17 08:19 09/15/17 08:37 09/15/17 08:19 - Medications Medications: Current Medications Acetaminophen (Tylenol 325mg Tab) 650 mg PO Q6H PRN PRN Reason: Pain, moderate (4-7) Last Admin: 09/13/17 20:50 Dose: 650 mg Amlodipine Besylate (Norvasc) 10 mg PO DAILY [facility] Last Admin: 09/15/17 08:37 Dose: 10 mg Atorvastatin Calcium (Lipitor) 80 mg PO HS [facility] Last Admin: 09/14/17 22:01 Dose: 80 mg Bisacodyl (Dulcolax) 5 mg PO DAILY PRN PRN Reason: Constipation Clonidine HCl (Catapres-Tts3 0.3 Mg/24 Hr) 1 patch TD Q7D [facility] Last Admin: 09/12/17 12:00 Dose: 1 patch Clopidogrel Bisulfate (Plavix) 75 mg PO DAILY [facility] Last Admin: 09/15/17 08:38 Dose: 75 mg Enoxaparin Sodium (Lovenox) 40 mg SC DAILY [facility] PRN Reason: Protocol Last Admin: 09/15/17 08:37 Dose: 40 mg Famotidine (Pepcid) 40 mg PO 0630 [facility] Last Admin: 09/15/17 07:01 Dose: 40 mg Insulin Detemir (Levemir) 10 units SC HS [facility] Last Admin: 09/14/17 22:02 Dose: 10 units Insulin Human Lispro (Humalog) 0 units SC [facility] PRN Reason: Protocol Last Admin: 09/15/17 12:38 Dose: 2 units Loratadine (Claritin) 10 mg PO DAILY [facility] Last Admin: 09/15/17 08:36 Dose: 10 mg Losartan Potassium (Cozaar) 100 mg PO DAILY [facility] Last Admin: 09/15/17 08:36 Dose: 100 mg Magnesium Hydroxide (Milk Of Magnesia) 15 ml PO QID PRN PRN Reason: Constipation Metformin HCl (Glucophage) 500 mg PO BID [facility] Last Admin: 09/15/17 08:36 Dose: 500 mg Metoprolol Tartrate (Lopressor) 50 mg PO Q12 [facility] Last Admin: 09/15/17 08:37 Dose: 50 mg Montelukast Sodium (Singulair) 10 mg PO HS [facility] Last Admin: 09/14/17 22:02 Dose: 10 mg Olopatadine HCl (Patanol 0.1% Opht Soln) 2 drop OU TID PRN PRN Reason: Allergy symptoms Last Admin: 09/06/17 08:39 Dose: 2 % Sitagliptin Phosphate (Januvia) 50 mg PO DAILY [facility] Last Admin: 09/15/17 08:36 Dose: 50 mg Tramadol HCl (Ultram) 50 mg PO Q6 PRN PRN Reason: Pain, severe (8-10) - Labs Labs: 09/14/17 05:20 09/14/17 05:20 - Head Exam Head Exam: ATRAUMATIC, NORMAL INSPECTION, NORMOCEPHALIC - Eye Exam Eye Exam: EOMI, Normal appearance, PERRL Pupil Exam: NORMAL ACCOMODATION - ENT Exam ENT Exam: Mucous Membranes Moist, Normal Exam - Neck Exam Neck Exam: Normal Inspection - Respiratory Exam Respiratory Exam: NORMAL BREATHING PATTERN - Cardiovascular Exam Cardiovascular Exam: REGULAR RHYTHM - GI/Abdominal Exam GI & Abdominal Exam: Soft - Rectal Exam Rectal Exam: NORMAL INSPECTION - Exam External exam: NORMAL EXTERNAL EXAM - Extremities Exam Extremities Exam: Full ROM, Normal Capillary Refill - Back Exam Back Exam: NORMAL INSPECTION - Neurological Exam Neurological Exam: Alert, Awake Neuro motor strength exam: Left Upper Extremity: 2/1, Right Upper Extremity: 3, Left Lower Extremity: 2/1, Right Lower Extremity: 3 - Psychiatric Exam Psychiatric exam: Normal Affect, Normal Mood - Skin Skin Exam: Dry, Intact Assessment and Plan (1) Acute CVA (cerebrovascular accident) Assessment & Plan: plan for Chest xray rule out 'aspiration pneumonia' patinet for Pt, Ot therapy Dc for 09/28 Status: Acute (2) Contusion Status: Acute (3) Contusion, hip Status: Acute (4) Diabetes mellitus with hyperglycemia Status: Acute (5) DM2 (diabetes mellitus, type 2) Status: Acute (6) DVT prophylaxis Status: Acute (7) Fracture of bone Status: Acute (8) Hemiparesis affecting left side as late effect of cerebrovascular accident Status: Acute (9) HLD (hyperlipidemia) Status: Acute (10) HTN (hypertension) Status: Acute
[2017-09-15] MEDS: Insulin Detemir 100 Units/ml Inj SC SCH (21:24)
[2017-09-16] MEDS: Insulin Lispro (humaLOG) 100 Units/ml Inj SC SCH ×4 (06:48→21:18)
[2017-09-16] MEDS: Enoxaparin 40 mg Syringe SC SCH (08:33)
--- NOTE | 2017-09-16 12:11 | PSY.TMCNF ---
Nursing - Vital Signs Vital Signs (Last 8 hours): Vital Signs 09/16/17 09/16/17 09/16/17 08:34 08:35 08:36 Temperature Pulse Rate 80 80 80 Respiratory Rate Blood Pressure 113/53 L 113/53 L 113/53 L O2 Sat by Pulse Oximetry 09/16/17 08:43 Temperature 98.2 F Pulse Rate 80 Respiratory 19 Rate Blood Pressure 113/53 L O2 Sat by Pulse 98 Oximetry Pain: 0 - Precautions: Precautions: Fall Prevention - Medications/Other Issues Comment: Pt at high nutritional risk. goals: 1. Pt to consume 75-100% of meals (not met, continue). 2. Blood glucoses to be between 70-180 mg/dl(not met, continue). Follow-up due on 09/17/2017 - Consults Comment: Dr. Martins, Dr. Jennings, Dr. Maldonado - Toileting Toileting: Moderate Assistance - Bladder Management Bladder Pattern: Normal Voiding Method: Toilet - Bowel Management Bowel Pattern: Normal Bowel Management: Maximal Assistance - Transfers Transfers: Moderate Assistance - ADL's ADL's: Moderate Assistance - Patient/Family Teaching Comments: Post CVA care - Goals/Time Frame Comments: as per [facility] - Bed Mobility Bed Mobility: Maximum Assistance - Transfers Sit to Stand: Verbal Cues, Minimal Assistance, Moderate Assistance - Ambulation Distance (ft.): 50 Assistive Devices: Narrow base quad cane - Stair Negotiation Stairs: Level of Assistance: Not Tested - Standing Balance Static Stand: Minimal Assistance Dynamic Stand: Unable to assess/perform - Pain Pain (assessed during therapy session): 0 - Insight/Carryover Insight/Carryover: Fair - Patient/Family Education Comment: -ongoing for adls, transfers/bed mobility training, safety strategies. -rehab/OT gaols, plan of care. -use of call stoner for assiatnce. -adaptive/ compensatory strategies - Assessment/Plan Assessment: Pt is agreeable to participate in 1:1 and group recreation therapy sessions throughout her stay on unit. Pt requires more contact guard assist to brick picker items and min-mod verbal cues for carryover of task rules. Pt demonstrates increase word finding and attention to task. Pt reports that she is fatigued at times and requires verbal cues to maintain arousal level. Pt attended both nutrition and stroke education group. Pt educated from peers and staff regarding post-stroke recovery and post-stroke nutrition. Pt's mood continues to be stable-positive and will continue to benefit from participating in recreation therapy sessions. - Goals Timeframe: 8 days Goals: -Grooming: I/setup seated. -Upper body bathing/dressing: Minimal assist and verbal cues skylar-techniques/seated. -lower body bathing/dressing: moderate assist and verbal cues with adaptive strategies/devices--seated. -toileting: minimal assist and verbal cues. -transfers: <->bed, commode, chair and other surfaces CG/min assist and verbal cues. -propel w/c 50-75 feet with CG/CS and verbal cues - Provider Therapist: c License Number: [id number] Occupational Therapy - Arousal/Attention/Orientation Patient Orientation: Person, Place, Time, Appropriate to Age, Appropriate to Situation - ADL/IADL Self Feeding: Independent, Set-up Help Grooming: Supervision, Verbal Cues, Set-up Help Bathing-Upper Extremity: Verbal Cues, Set-up Help, Moderate Assistance Bathing-Lower Extremity: Verbal Cues, Set-up Help, Maximum Assistance Dressing-Upper Extremity: Verbal Cues, Set-up Help, Moderate Assistance Dressing-Lower Extremity: Verbal Cues, Set-up Help, Moderate Assistance - Sitting Balance Static Sitting: Supervision Dynamic Sitting: Minimal Assistance Comment: seated unsupported at edge of bed - Transfers Wheelchair to Bed Transfers: Verbal Cues, Set-up Help, Minimal Assistance Toilet Transfers: Verbal Cues, Set-up Help, Minimal Assistance Comment: shower transfers: Min assist and verbal cues - Wheelchair Management Level of Assistance: Minimal Assistance Distance (ft.): 30 - Upper Extremity Status Right Upper Extremity Comment: AROM is WNLS; strength 4/5 Left Upper Extremity Comment: PROM IN LUE is WFLS; AROM limited by impiared strength--shoulder 2/5, elbow flex/extension: 2/5, supination/pronation 2/5, wrist 2/5, digits 1/5 to 2-/5 inconsistent. no subluxation - Pain Pain (assessed during therapy session): 0 - Insight/Carryover Insight/Carryover: Fair - Patient/Family Education Comment: -ongoing for adls, transfers/bed mobility training, safety strategies. -rehab/OT gaols, plan of care. -use of call stoner for assiatnce. -adaptive/ compensatory strategies - Assessment/Plan Assessment: Pt is agreeable to participate in 1:1 and group recreation therapy sessions throughout her stay on unit. Pt requires more contact guard assist to brick picker items and min-mod verbal cues for carryover of task rules. Pt demonstrates increase word finding and attention to task. Pt reports that she is fatigued at times and requires verbal cues to maintain arousal level. Pt attended both nutrition and stroke education group. Pt educated from peers and staff regarding post-stroke recovery and post-stroke nutrition. Pt's mood continues to be stable-positive and will continue to benefit from participating in recreation therapy sessions. - Goals Timeframe: 8 days Goals: -Grooming: I/setup seated. -Upper body bathing/dressing: Minimal assist and verbal cues skylar-techniques/seated. -lower body bathing/dressing: moderate assist and verbal cues with adaptive strategies/devices--seated. -toileting: minimal assist and verbal cues. -transfers: <->bed, commode, chair and other surfaces CG/min assist and verbal cues. -propel w/c 50-75 feet with CG/CS and verbal cues - Provider Therapist: HARJIT Abraham/L License Number: [id number] Speech Therapy - Consult Information Patient on Program: Yes Medical Diagnosis: CVA Treatment Diagnosis: Speech/cognition WFL. Swallow function WFL - Assessment Comment: WFL - pt on bite-sized solids/thin liquids - Plan Assessment: Pt is agreeable to participate in 1:1 and group recreation therapy sessions throughout her stay on unit. Pt requires more contact guard assist to brick picker items and min-mod verbal cues for carryover of task rules. Pt demonstrates increase word finding and attention to task. Pt reports that she is fatigued at times and requires verbal cues to maintain arousal level. Pt attended both nutrition and stroke education group. Pt educated from peers and staff regarding post-stroke recovery and post-stroke nutrition. Pt's mood continues to be stable-positive and will continue to benefit from participating in recreation therapy sessions. - Provider Therapist: Maegan Sinclair License Number: [id number] Recreational Therapy - Participation Participation: Participates in Individual and/or Group Sessions - Attendance Attendance: 3-5 times per week - Activities Leisure Activities: Cards and Games - Socialization Level of Socialization: Initiates/interacts freely with care givers and peer - Diversional Time Diversional Time: participates in 1:1 and group recreation therapy sessions - Assessment Assessment/Plan: Pt is agreeable to participate in 1:1 and group recreation therapy sessions throughout her stay on unit. Pt requires more contact guard assist to brick picker items and min-mod verbal cues for carryover of task rules. Pt demonstrates increase word finding and attention to task. Pt reports that she is fatigued at times and requires verbal cues to maintain arousal level. Pt attended both nutrition and stroke education group. Pt educated from peers and staff regarding post-stroke recovery and post-stroke nutrition. Pt's mood continues to be stable-positive and will continue to benefit from participating in recreation therapy sessions. Problems Currently Limiting Participation: L side weakness, decrease leisure awareness level, flat affect Goals and Time Frame: Pt will be encouraged to participate in 1:1 and group recreation therapy sessions 3-5x week to improve leisure awareness level, improve mood state, and improve attention to task. - Provider Therapist: Lamar Patel, [employer] #[id number] Nutrition - Current Diet Current Diet/ Supplement/ Feedings: Moderate consistent CHO advanced bite size thin liquids glucerna shake 8 ounces 1 per day - Appetite Percent Meal Consumed: 75-100% - Comments Comments: Post CVA care - Assessment/Goals/Time Frame Assessment/Goals/Time Frame: Pt at high nutritional risk. goals: 1. Pt to consume 75-100% of meals(not met, continue). 2. Blood glucoses to be between 70-180 mg/dl(not met, continue). Follow-up due on 09/17/2017 - Provider Provider: Janie Middleton RD Case Management - Psychosocial Assessment Support Systems: Gerardo Sdihu (son)- [phone]. Edmond Martino (brother)- Psychological Interventions/Needs: Patient is AAOx3 and can verbalize needs. Patient anxious and worried regarding returning home as she has limited support during the day Discharge Concerns: Patient currently requiring mod-max A overall with some return in strength, however, with limited support at home Patient/Family Meeting: CM met with patient and rehab team Intervention/Goal/Outcome:: 1. Plan: Home vs [facility] depending on patient's progress in therapy. 2. tentative discharge date: 09/28/2017. 3. DME needs. 4. continued emotional support. - Discharge Plan Discharge Plan: Subacute care - Provider Provider: MORGAN Hartley, [employer] License Number: [id number] Rehabilitation Plan - Treatment Plan Treatment Plan: Physical Therapy, Occupational Therapy, Speech, Dietary, Patient /Family Education - Recommendation Recommendation: Physical Therapy, Occupational Therapy, Speech, Dietary, Patient /Family Education - Discharge Plan Discharge to: Subacute (29)
--- NOTE | 2017-09-16 12:48 | RAD ---
HISTORY: Cough,sputum COMPARISON: No prior. TECHNIQUE: Chest PA and lateral FINDINGS: LUNGS: No active pulmonary disease. PLEURA: No significant pleural effusion identified. No pneumothorax apparent. CARDIOVASCULAR: Normal. OSSEOUS STRUCTURES: No significant abnormalities. VISUALIZED UPPER ABDOMEN: Normal. OTHER FINDINGS: None. IMPRESSION: No active disease.
--- NOTE | 2017-09-16 13:23 | CP.PCM.PN ---
Subjective - Date & Time of Evaluation Date of Evaluation: 09/16/17 Time of Evaluation: 09:00 - Subjective Subjective: no acute complaints Objective - Vital Signs/Intake and Output Vital Signs (last 24 hours): Temp Pulse Resp BP Pulse Ox 98.2 F 79 19 132/61 98 09/16/17 08:43 09/16/17 12:48 09/16/17 08:43 09/16/17 12:48 09/16/17 08:43 - Medications Medications: Current Medications Acetaminophen (Tylenol 325mg Tab) 650 mg PO Q6H PRN PRN Reason: Pain, moderate (4-7) Last Admin: 09/13/17 20:50 Dose: 650 mg Amlodipine Besylate (Norvasc) 10 mg PO DAILY [facility] Last Admin: 09/16/17 08:36 Dose: 10 mg Atorvastatin Calcium (Lipitor) 80 mg PO HS [facility] Last Admin: 09/15/17 21:26 Dose: 80 mg Bisacodyl (Dulcolax) 5 mg PO DAILY PRN PRN Reason: Constipation Clonidine HCl (Catapres-Tts3 0.3 Mg/24 Hr) 1 patch TD Q7D [facility] Last Admin: 09/12/17 12:00 Dose: 1 patch Clopidogrel Bisulfate (Plavix) 75 mg PO DAILY [facility] Last Admin: 09/16/17 08:36 Dose: 75 mg Enoxaparin Sodium (Lovenox) 40 mg SC DAILY [facility] PRN Reason: Protocol Last Admin: 09/16/17 08:33 Dose: 40 mg Famotidine (Pepcid) 40 mg PO 0630 [facility] Last Admin: 09/16/17 06:47 Dose: 40 mg Insulin Detemir (Levemir) 10 units SC [facility] Last Admin: 09/15/17 21:24 Dose: 10 units Insulin Human Lispro (Humalog) 0 units SC [facility] PRN Reason: Protocol Last Admin: 09/16/17 12:44 Dose: Not Given Loratadine (Claritin) 10 mg PO DAILY [facility] Last Admin: 09/16/17 08:35 Dose: 10 mg Losartan Potassium (Cozaar) 100 mg PO DAILY [facility] Last Admin: 09/16/17 08:35 Dose: 100 mg Magnesium Hydroxide (Milk Of Magnesia) 15 ml PO QID PRN PRN Reason: Constipation Metformin HCl (Glucophage) 500 mg PO BID [facility] Last Admin: 09/16/17 08:35 Dose: 500 mg Metoprolol Tartrate (Lopressor) 50 mg PO Q12 [facility] Last Admin: 09/16/17 08:34 Dose: 50 mg Montelukast Sodium (Singulair) 10 mg PO HS [facility] Last Admin: 09/15/17 21:27 Dose: 10 mg Olopatadine HCl (Patanol 0.1% Opht Soln) 2 drop OU TID PRN PRN Reason: Allergy symptoms Last Admin: 09/06/17 08:39 Dose: 2 % Sitagliptin Phosphate (Januvia) 50 mg PO DAILY [facility] Last Admin: 09/16/17 08:36 Dose: 50 mg Tramadol HCl (Ultram) 50 mg PO Q6 PRN PRN Reason: Pain, severe (8-10) - Labs Labs: 09/14/17 05:20 09/14/17 05:20 - Head Exam Head Exam: ATRAUMATIC, NORMAL INSPECTION, NORMOCEPHALIC - Eye Exam Eye Exam: EOMI, Normal appearance, PERRL Pupil Exam: NORMAL ACCOMODATION - ENT Exam ENT Exam: Mucous Membranes Moist, Normal Exam - Neck Exam Neck Exam: Full ROM - Respiratory Exam Respiratory Exam: NORMAL BREATHING PATTERN - Cardiovascular Exam Cardiovascular Exam: REGULAR RHYTHM - GI/Abdominal Exam GI & Abdominal Exam: Soft, Normal Bowel Sounds - Rectal Exam Rectal Exam: NORMAL INSPECTION - Exam External exam: NORMAL EXTERNAL EXAM - Extremities Exam Extremities Exam: Full ROM, Normal Capillary Refill - Back Exam Back Exam: NORMAL INSPECTION - Neurological Exam Neurological Exam: Alert, Awake Neuro motor strength exam: Left Upper Extremity: 2/1, Right Upper Extremity: 3, Left Lower Extremity: 2/1, Right Lower Extremity: 3 - Psychiatric Exam Psychiatric exam: Normal Affect, Normal Mood - Skin Skin Exam: Dry, Normal Color Assessment and Plan (1) Acute CVA (cerebrovascular accident) Assessment & Plan: plan for pt, ot rec therapy sratus post team conference Status: Acute (2) Contusion Status: Acute (3) Contusion, hip Status: Acute (4) Diabetes mellitus with hyperglycemia Status: Acute (5) DM2 (diabetes mellitus, type 2) Status: Acute (6) DVT prophylaxis Status: Acute (7) Fracture of bone Status: Acute (8) Hemiparesis affecting left side as late effect of cerebrovascular accident Status: Acute (9) HLD (hyperlipidemia) Status: Acute (10) HTN (hypertension) Status: Acute
--- NOTE | 2017-09-16 13:57 | CP.PCM.PN ---
Subjective - Date & Time of Evaluation Date of Evaluation: 09/16/17 Time of Evaluation: 11:30 - Subjective Subjective: Pt seen and examined. Continue to have dryness in her mouth and on and off vertigo (not new as per patient) Objective - Vital Signs/Intake and Output Vital Signs (last 24 hours): Temp Pulse Resp BP Pulse Ox 98.2 F 79 19 132/61 98 09/16/17 08:43 09/16/17 12:48 09/16/17 08:43 09/16/17 12:48 09/16/17 08:43 - Medications Medications: Current Medications Acetaminophen (Tylenol 325mg Tab) 650 mg PO Q6H PRN PRN Reason: Pain, moderate (4-7) Last Admin: 09/13/17 20:50 Dose: 650 mg Amlodipine Besylate (Norvasc) 10 mg PO DAILY [facility] Last Admin: 09/16/17 08:36 Dose: 10 mg Atorvastatin Calcium (Lipitor) 80 mg PO HS [facility] Last Admin: 09/15/17 21:26 Dose: 80 mg Bisacodyl (Dulcolax) 5 mg PO DAILY PRN PRN Reason: Constipation Clonidine HCl (Catapres-Tts3 0.3 Mg/24 Hr) 1 patch TD Q7D [facility] Last Admin: 09/12/17 12:00 Dose: 1 patch Clopidogrel Bisulfate (Plavix) 75 mg PO DAILY [facility] Last Admin: 09/16/17 08:36 Dose: 75 mg Enoxaparin Sodium (Lovenox) 40 mg SC DAILY [facility] PRN Reason: Protocol Last Admin: 09/16/17 08:33 Dose: 40 mg Famotidine (Pepcid) 40 mg PO 0630 [facility] Last Admin: 09/16/17 06:47 Dose: 40 mg Insulin Detemir (Levemir) 10 units SC [facility] Last Admin: 09/15/17 21:24 Dose: 10 units Insulin Human Lispro (Humalog) 0 units SC [facility] PRN Reason: Protocol Last Admin: 09/16/17 12:44 Dose: Not Given Loratadine (Claritin) 10 mg PO DAILY [facility] Last Admin: 09/16/17 08:35 Dose: 10 mg Losartan Potassium (Cozaar) 100 mg PO DAILY [facility] Last Admin: 09/16/17 08:35 Dose: 100 mg Magnesium Hydroxide (Milk Of Magnesia) 15 ml PO QID PRN PRN Reason: Constipation Metformin HCl (Glucophage) 500 mg PO BID [facility] Last Admin: 09/16/17 08:35 Dose: 500 mg Metoprolol Tartrate (Lopressor) 50 mg PO Q12 [facility] Last Admin: 09/16/17 08:34 Dose: 50 mg Montelukast Sodium (Singulair) 10 mg PO HS [facility] Last Admin: 09/15/17 21:27 Dose: 10 mg Olopatadine HCl (Patanol 0.1% Opht Soln) 2 drop OU TID PRN PRN Reason: Allergy symptoms Last Admin: 09/06/17 08:39 Dose: 2 % Sitagliptin Phosphate (Januvia) 50 mg PO DAILY [facility] Last Admin: 09/16/17 08:36 Dose: 50 mg Tramadol HCl (Ultram) 50 mg PO Q6 PRN PRN Reason: Pain, severe (8-10) - Labs Labs: 09/14/17 05:20 09/14/17 05:20 - Constitutional Appears: No Acute Distress - Head Exam Head Exam: ATRAUMATIC - Eye Exam Eye Exam: absent: Scleral icterus - ENT Exam ENT Exam: Mucous Membranes Moist - Neck Exam Neck Exam: absent: Meningismus - Respiratory Exam Respiratory Exam: absent: Rhonchi, Wheezes - Cardiovascular Exam Cardiovascular Exam: REGULAR RHYTHM, +S1, +S2 - GI/Abdominal Exam GI & Abdominal Exam: Soft. absent: Tenderness - Rectal Exam Rectal Exam: Deferred - Extremities Exam Extremities Exam: absent: Pedal Edema, Tenderness - Back Exam Back Exam: absent: tenderness - Neurological Exam Neurological Exam: Alert, Oriented x3 - Psychiatric Exam Psychiatric exam: Normal Affect - Skin Skin Exam: Dry, Intact Assessment and Plan - Assessment and Plan (Free Text) Assessment: 71 yo female with history of DMII and HTN admitted at [facility] because of dizziness and weakness of the left arm. She was admitted and diagnosed with CVA after MRI showed right sided pontine infarct. 1. Acute CVA continue Plavix and statin continue PT/OT Dr Jennings on neuro consult 2. HTN BP stable continue Losartan, Norvasc, Metoprolol and Clonidine patch 3. DMII relatively controlled continue Levemir, Metformin and Januvia 4. DVT prophylaxis continue Lovenox
[2017-09-16] MEDS: Insulin Detemir 100 Units/ml Inj SC SCH (21:44)
[2017-09-17] MEDS: Insulin Lispro (humaLOG) 100 Units/ml Inj SC SCH ×4 (06:50→21:00)
[2017-09-17 07:16] LABS: HEMOGLOBIN 12.2 g/dL (12.0-16.0); MEAN CELL VOLUME 87.3 fl (81.0-99.0); MEAN CORPUSCULAR HEMOGLOBIN 29.1 pg (27.0-31.0); MEAN CORPUSCULAR HGB CONC 33.4 g/dL (33.0-37.0); RBC 4.2 Mil/uL (3.80-5.20); RED CELL DISTRIBUTION WIDTH 13.2 % (11.5-14.5); WHITE BLOOD COUNT 5.9 K/uL (4.8-10.8)
[2017-09-17 07:37] LABS: BLOOD UREA NITROGEN 15 mg/dl (7-17); CALCIUM 9.6 mg/dL (8.4-10.2); GFR AFRICAN-AMERICAN > 60; GFR NON-AFRICAN AMERICAN > 60
[2017-09-17] MEDS: Enoxaparin 40 mg Syringe SC SCH (08:15)
[2017-09-17] MEDS: guaiFENesin 100 mg/5 ml Syrup UD PO PRN (20:47)
[2017-09-17] MEDS: Insulin Detemir 100 Units/ml Inj SC SCH (21:36)
[2017-09-18] MEDS: Olopatadine 0.1% Opht SOLN OU PRN (06:53)
[2017-09-18] MEDS: Insulin Lispro (humaLOG) 100 Units/ml Inj SC SCH ×4 (06:54→22:17)
[2017-09-18] MEDS: Enoxaparin 40 mg Syringe SC SCH (08:02)
--- NOTE | 2017-09-18 13:27 | CP.PCM.PN ---
Subjective - Date & Time of Evaluation Date of Evaluation: 09/18/17 Time of Evaluation: 10:00 - Subjective Subjective: no acute neck or back pain Objective - Vital Signs/Intake and Output Vital Signs (last 24 hours): Temp Pulse Resp BP Pulse Ox 97.9 F 72 20 136/57 L 98 09/18/17 08:02 09/18/17 09:29 09/18/17 08:02 09/18/17 09:29 09/18/17 09:29 - Medications Medications: Current Medications Acetaminophen (Tylenol 325mg Tab) 650 mg PO Q6H PRN PRN Reason: Pain, moderate (4-7) Last Admin: 09/13/17 20:50 Dose: 650 mg Amlodipine Besylate (Norvasc) 5 mg PO DAILY [facility] Last Admin: 09/18/17 08:02 Dose: 5 mg Atorvastatin Calcium (Lipitor) 80 mg PO HS [facility] Last Admin: 09/17/17 21:36 Dose: 80 mg Bisacodyl (Dulcolax) 5 mg PO DAILY PRN PRN Reason: Constipation Clonidine HCl (Catapres-Tts3 0.3 Mg/24 Hr) 1 patch TD Q7D [facility] Last Admin: 09/12/17 12:00 Dose: 1 patch Clopidogrel Bisulfate (Plavix) 75 mg PO DAILY [facility] Last Admin: 09/18/17 08:03 Dose: 75 mg Enoxaparin Sodium (Lovenox) 40 mg SC DAILY [facility] PRN Reason: Protocol Last Admin: 09/18/17 08:02 Dose: 40 mg Famotidine (Pepcid) 40 mg PO 0630 [facility] Last Admin: 09/18/17 06:24 Dose: 40 mg Guaifenesin (Robitussin) 100 mg PO Q6 PRN PRN Reason: Cough Last Admin: 09/17/17 20:47 Dose: 100 mg Insulin Detemir (Levemir) [address] [facility] Last Admin: 09/17/17 21:36 Dose: 10 units Insulin Human Lispro (Humalog) 0 units SC [facility] PRN Reason: Protocol Last Admin: 09/18/17 12:17 Dose: 2 units Loratadine (Claritin) 10 mg PO DAILY@2100 [facility] Last Admin: 09/17/17 20:46 Dose: 10 mg Losartan Potassium (Cozaar) 100 mg PO DAILY [facility] Last Admin: 09/18/17 08:01 Dose: 100 mg Magnesium Hydroxide (Milk Of Magnesia) 15 ml PO QID PRN PRN Reason: Constipation Metformin HCl (Glucophage) 500 mg PO BID [facility] Last Admin: 09/18/17 08:01 Dose: 500 mg Metoprolol Tartrate (Lopressor) 50 mg PO Q12 [facility] Last Admin: 09/18/17 08:02 Dose: 50 mg Montelukast Sodium (Singulair) 10 mg PO HS [facility] Last Admin: 09/17/17 21:36 Dose: 10 mg Olopatadine HCl (Patanol 0.1% Opht Soln) 2 drop OU TID PRN PRN Reason: Allergy symptoms Last Admin: 09/18/17 06:53 Dose: 2 drop Sitagliptin Phosphate (Januvia) 50 mg PO DAILY [facility] Last Admin: 09/18/17 08:01 Dose: 50 mg Tramadol HCl (Ultram) 50 mg PO Q6 PRN PRN Reason: Pain, severe (8-10) - Labs Labs: 09/17/17 06:00 09/17/17 06:00 - Head Exam Head Exam: ATRAUMATIC - Eye Exam Eye Exam: EOMI, Normal appearance Pupil Exam: NORMAL ACCOMODATION, PERRL - ENT Exam ENT Exam: Mucous Membranes Moist, Normal Exam - Neck Exam Neck Exam: Full ROM, Normal Inspection - Respiratory Exam Respiratory Exam: Clear to Ausculation Bilateral, NORMAL BREATHING PATTERN - Cardiovascular Exam Cardiovascular Exam: REGULAR RHYTHM - GI/Abdominal Exam GI & Abdominal Exam: Soft, Normal Bowel Sounds - Rectal Exam Rectal Exam: NORMAL INSPECTION - Exam External exam: NORMAL EXTERNAL EXAM - Extremities Exam Extremities Exam: Full ROM, Normal Capillary Refill, Normal Inspection - Back Exam Back Exam: NORMAL INSPECTION - Neurological Exam Neurological Exam: Alert, Awake Neuro motor strength exam: Left Upper Extremity: 2/1, Right Upper Extremity: 3, Left Lower Extremity: 2/1, Right Lower Extremity: 3 - Psychiatric Exam Psychiatric exam: Normal Affect, Normal Mood - Skin Skin Exam: Dry, Normal Color Assessment and Plan (1) Acute CVA (cerebrovascular accident) Assessment & Plan: plan for and speech therapy physical, occupational therapy Status: Acute (2) Contusion Status: Acute (3) Contusion, hip Status: Acute (4) Diabetes mellitus with hyperglycemia Status: Acute (5) DM2 (diabetes mellitus, type 2) Status: Acute (6) DVT prophylaxis Status: Acute (7) Fracture of bone Status: Acute (8) Hemiparesis affecting left side as late effect of cerebrovascular accident Status: Acute (9) HLD (hyperlipidemia) Status: Acute (10) HTN (hypertension) Status: Acute
[2017-09-18] MEDS: guaiFENesin 100 mg/5 ml Syrup UD PO PRN ×2 (17:21→23:22)
--- NOTE | 2017-09-18 17:41 | CP.PCM.PN ---
Subjective - Date & Time of Evaluation Date of Evaluation: 09/18/17 Time of Evaluation: 12:00 - Subjective Subjective: Patient seen and examined at bedside. Complaining occasional mild vertigo (but says this has been a problem for years). Continues to complain of dryness in her mouth. Hemodynamically stable, afebrile, NAD. Objective - Vital Signs/Intake and Output Vital Signs (last 24 hours): Temp Pulse Resp BP Pulse Ox 97.9 F 72 20 136/57 L 98 09/18/17 08:02 09/18/17 09:29 09/18/17 08:02 09/18/17 09:29 09/18/17 09:29 - Medications Medications: Current Medications Acetaminophen (Tylenol 325mg Tab) 650 mg PO Q6H PRN PRN Reason: Pain, moderate (4-7) Last Admin: 09/13/17 20:50 Dose: 650 mg Amlodipine Besylate (Norvasc) 5 mg PO DAILY [facility] Last Admin: 09/18/17 08:02 Dose: 5 mg Atorvastatin Calcium (Lipitor) 80 mg PO [facility] Last Admin: 09/17/17 21:36 Dose: 80 mg Bisacodyl (Dulcolax) 5 mg PO DAILY PRN PRN Reason: Constipation Clonidine HCl (Catapres-Tts3 0.3 Mg/24 Hr) 1 patch TD Q7D [facility] Last Admin: 09/12/17 12:00 Dose: 1 patch Clopidogrel Bisulfate (Plavix) 75 mg PO DAILY [facility] Last Admin: 09/18/17 08:03 Dose: 75 mg Enoxaparin Sodium (Lovenox) 40 mg SC DAILY [facility] PRN Reason: Protocol Last Admin: 09/18/17 08:02 Dose: 40 mg Famotidine (Pepcid) 40 mg PO 0630 [facility] Last Admin: 09/18/17 06:24 Dose: 40 mg Guaifenesin (Robitussin) 100 mg PO Q6 PRN PRN Reason: Cough Last Admin: 09/18/17 17:21 Dose: 100 mg Insulin Detemir (Levemir) 10 units SC [facility] Last Admin: 09/17/17 21:36 Dose: 10 units Insulin Human Lispro (Humalog) 0 units SC [facility] PRN Reason: Protocol Last Admin: 09/18/17 17:18 Dose: Not Given Loratadine (Claritin) 10 mg PO DAILY@2100 [facility] Last Admin: 09/17/17 20:46 Dose: 10 mg Losartan Potassium (Cozaar) 100 mg PO DAILY [facility] Last Admin: 09/18/17 08:01 Dose: 100 mg Magnesium Hydroxide (Milk Of Magnesia) 15 ml PO QID PRN PRN Reason: Constipation Metformin HCl (Glucophage) 500 mg PO BID [facility] Last Admin: 09/18/17 17:19 Dose: 500 mg Metoprolol Tartrate (Lopressor) 50 mg PO Q12 [facility] Last Admin: 09/18/17 08:02 Dose: 50 mg Montelukast Sodium (Singulair) 10 mg PO HS [facility] Last Admin: 09/17/17 21:36 Dose: 10 mg Olopatadine HCl (Patanol 0.1% Opht Soln) 2 drop OU TID PRN PRN Reason: Allergy symptoms Last Admin: 09/18/17 06:53 Dose: 2 drop Sitagliptin Phosphate (Januvia) 50 mg PO DAILY [facility] Last Admin: 09/18/17 08:01 Dose: 50 mg Tramadol HCl (Ultram) 50 mg PO Q6 PRN PRN Reason: Pain, severe (8-10) - Labs Labs: 09/17/17 06:00 09/17/17 06:00 - Additional Findings Additional findings: Physical exam: Constitutional- cooperative, awake, alert Head- NCAT, PERRL Eye- PERRL, EOMI ENT- normal exam, MMM. Neck- normal inspection, supple, no JVD Respiratory- CTAB, no wheezes rales rhonchi Cardiovascular- RRR, +S1, +S2 no MRG GI/Abdominal- normal bowel sounds, soft, no mass, no hsm Skin- warm, dry Extremities Exam- normal capillary refill, normal inspection Neurological Exam- alert, awake, oriented Psych- normal mood, normal affect Assessment and Plan - Assessment and Plan (Free Text) Plan: 71 yo female with history of DMII and HTN admitted at [facility] because of dizziness and weakness of the left arm. She was admitted and diagnosed with CVA after MRI showed right sided pontine infarct. She was afterwards admitted to acute rehab at [facility] for further rehabilitation. 1. Acute CVA with dizziness continue Plavix and statin continue PT/OT Dr Jennings on neuro consult 2. HTN BP stable continue Losartan, Norvasc, Metoprolol and Clonidine patch 3. DMII relatively controlled continue Levemir, Metformin and Januvia 4. DVT prophylaxis continue Lovenox
[2017-09-18] MEDS: Insulin Detemir 100 Units/ml Inj SC SCH (22:00)
[2017-09-19] MEDS: Insulin Lispro (humaLOG) 100 Units/ml Inj SC SCH ×4 (07:40→21:00)
[2017-09-19] MEDS: Enoxaparin 40 mg Syringe SC SCH (09:01)
[2017-09-19] MEDS: guaiFENesin 100 mg/5 ml Syrup UD PO PRN ×3 (10:56→23:51)
[2017-09-19] MEDS: Insulin Detemir 100 Units/ml Inj SC SCH (21:47)
[2017-09-20] MEDS: guaiFENesin 100 mg/5 ml Syrup UD PO PRN ×3 (06:26→21:08)
[2017-09-20] MEDS: Insulin Lispro (humaLOG) 100 Units/ml Inj SC SCH ×4 (06:55→21:00)
[2017-09-20 07:39] LABS: MEAN CELL VOLUME 87.8 fl (81.0-99.0); MEAN CORPUSCULAR HEMOGLOBIN 28.2 pg (27.0-31.0); MEAN CORPUSCULAR HGB CONC 32.1 g/dL (33.0-37.0); RBC 4.27 Mil/uL (3.80-5.20); RED CELL DISTRIBUTION WIDTH 13.4 % (11.5-14.5); WHITE BLOOD COUNT 7.3 K/uL (4.8-10.8)
[2017-09-20 08:33] LABS: BLOOD UREA NITROGEN 11 mg/dl (7-17); CALCIUM 9.2 mg/dL (8.4-10.2); GFR AFRICAN-AMERICAN > 60; GFR NON-AFRICAN AMERICAN > 60
[2017-09-20] MEDS: Enoxaparin 40 mg Syringe SC SCH (10:23)
[2017-09-20] MEDS ORDERED: Acetylcysteine 10% 4 ML IH ONE (18:25)
[2017-09-20] MEDS ORDERED: Albuterol-Ipratrop 3 mg / 0.5 (3 ml) UD INH ONE (18:51)
[2017-09-20] MEDS: Insulin Detemir 100 Units/ml Inj SC SCH (21:28)
[2017-09-21] MEDS: Insulin Lispro (humaLOG) 100 Units/ml Inj SC SCH ×4 (06:55→21:50)
[2017-09-21] MEDS: Enoxaparin 40 mg Syringe SC SCH (08:43)
[2017-09-21] MEDS: Olopatadine 0.1% Opht SOLN OU PRN (17:42)
--- NOTE | 2017-09-21 17:46 | CP.PCM.PN ---
Subjective - Date & Time of Evaluation Date of Evaluation: 09/21/17 Time of Evaluation: 15:45 - Subjective Subjective: Pt seen and examined. Complained of frequent dry cough. Denied SOB. Objective - Vital Signs/Intake and Output Vital Signs (last 24 hours): Temp Pulse Resp BP Pulse Ox 97.3 F L 88 22 140/48 L 96 09/21/17 08:39 09/21/17 08:44 09/21/17 08:39 09/21/17 08:44 09/21/17 08:39 - Medications Medications: Current Medications Acetaminophen (Tylenol 325mg Tab) 650 mg PO Q6H PRN PRN Reason: Pain, moderate (4-7) Last Admin: 09/20/17 10:26 Dose: 650 mg Acetylcysteine (Acetylcysteine 20%) 2 ml INH RBID [facility] Amlodipine Besylate (Norvasc) 5 mg PO DAILY [facility] Last Admin: 09/21/17 08:44 Dose: 5 mg Atorvastatin Calcium (Lipitor) 80 mg PO [facility] Last Admin: 09/20/17 21:05 Dose: 80 mg Bisacodyl (Dulcolax) 5 mg PO DAILY PRN PRN Reason: Constipation Clonidine HCl (Catapres-Tts3 0.3 Mg/24 Hr) 1 patch TD Q7D [facility] Last Admin: 09/19/17 12:12 Dose: 1 patch Clopidogrel Bisulfate (Plavix) 75 mg PO DAILY [facility] Last Admin: 09/21/17 08:44 Dose: 75 mg Enoxaparin Sodium (Lovenox) 40 mg SC DAILY [facility] PRN Reason: Protocol Last Admin: 09/21/17 08:43 Dose: 40 mg Famotidine (Pepcid) 40 mg PO 0630 [facility] Last Admin: 09/21/17 06:19 Dose: 40 mg Guaifenesin (Robitussin) 100 mg PO Q6 PRN PRN Reason: Cough Last Admin: 09/20/17 21:08 Dose: 100 mg Insulin Detemir (Levemir) 10 units SC [facility] Last Admin: 09/20/17 21:28 Dose: 10 units Insulin Human Lispro (Humalog) 0 units SC [facility] PRN Reason: Protocol Last Admin: 09/21/17 17:16 Dose: Not Given Loratadine (Claritin) 10 mg PO DAILY@2100 [facility] Last Admin: 09/20/17 21:05 Dose: 10 mg Losartan Potassium (Cozaar) 100 mg PO DAILY [facility] Last Admin: 09/21/17 08:42 Dose: 100 mg Magnesium Hydroxide (Milk Of Magnesia) 15 ml PO QID PRN PRN Reason: Constipation Meclizine HCl (Antivert) 12.5 mg PO DAILY PRN PRN Reason: Dizziness Metformin HCl (Glucophage) 500 mg PO BID [facility] Last Admin: 09/21/17 17:16 Dose: 500 mg Metoprolol Tartrate (Lopressor) 50 mg PO Q12 [facility] Last Admin: 09/21/17 08:43 Dose: 50 mg Montelukast Sodium (Singulair) 10 mg PO HS [facility] Last Admin: 09/20/17 21:05 Dose: 10 mg Olopatadine HCl (Patanol 0.1% Opht Soln) 2 drop OU TID PRN PRN Reason: Allergy symptoms Last Admin: 09/21/17 17:42 Dose: 2 drop Sitagliptin Phosphate (Januvia) 50 mg PO DAILY [facility] Last Admin: 09/21/17 08:44 Dose: 50 mg Tramadol HCl (Ultram) 50 mg PO Q6 PRN PRN Reason: Pain, severe (8-10) - Labs Labs: 09/20/17 06:00 09/20/17 06:00 - Constitutional Appears: No Acute Distress - Head Exam Head Exam: ATRAUMATIC - Eye Exam Eye Exam: absent: Scleral icterus - ENT Exam ENT Exam: Mucous Membranes Moist - Neck Exam Neck Exam: absent: Meningismus - Respiratory Exam Respiratory Exam: absent: Rhonchi, Wheezes, Respiratory Distress - Cardiovascular Exam Cardiovascular Exam: REGULAR RHYTHM, +S1, +S2 - GI/Abdominal Exam GI & Abdominal Exam: Soft. absent: Tenderness - Rectal Exam Rectal Exam: Deferred - Extremities Exam Extremities Exam: absent: Pedal Edema - Neurological Exam Neurological Exam: Alert, Oriented x3 - Psychiatric Exam Psychiatric exam: Normal Affect - Skin Skin Exam: Dry, Intact Assessment and Plan - Assessment and Plan (Free Text) Assessment: 71 yo female with history of DMII and HTN admitted at [facility] because of dizziness and weakness of the left arm. She was admitted and diagnosed with CVA after MRI showed right sided pontine infarct. 1. Acute CVA continue Plavix and statin continue PT/OT Dr Dick on neuro consult 2. HTN BP stable but on the low side continue Losartan, Metoprolol and Clonidine patch DC Norvasc 3. DMII relatively controlled continue Levemir, Metformin and Januvia 4. Coughing probably secondary to post nasal drip continue Claritin 10mg PO daily Acetylcysteine via nebulizer BID Robitussin 100mg PO q 6hrs prn 4. DVT prophylaxis continue Lovenox
[2017-09-21] MEDS: Acetylcysteine 20% Inhal Soln (4ml) INH SCH (19:19)
[2017-09-21] MEDS: Albuterol-Ipratrop 3 mg / 0.5 (3 ml) UD INH PRN (19:19)
[2017-09-21] MEDS: guaiFENesin 100 mg/5 ml Syrup UD PO PRN (20:49)
[2017-09-21] MEDS: Insulin Detemir 100 Units/ml Inj SC SCH (21:48)
[2017-09-22] MEDS: Insulin Lispro (humaLOG) 100 Units/ml Inj SC SCH ×4 (08:00→21:41)
[2017-09-22] MEDS: Enoxaparin 40 mg Syringe SC SCH (08:18)
[2017-09-22] MEDS: Acetylcysteine 20% Inhal Soln (4ml) INH SCH ×3 (08:37→19:11)
[2017-09-22] MEDS: Albuterol-Ipratrop 3 mg / 0.5 (3 ml) UD INH PRN ×2 (10:24→19:11)
--- NOTE | 2017-09-22 12:23 | CP.PCM.PN ---
Subjective - Date & Time of Evaluation Date of Evaluation: 09/22/17 Time of Evaluation: 11:00 - Subjective Subjective: patinet with less complaints of nausea and phlegm Objective - Vital Signs/Intake and Output Vital Signs (last 24 hours): Temp Pulse Resp BP Pulse Ox 97.9 F 78 20 146/60 95 09/22/17 08:51 09/22/17 08:51 09/22/17 08:51 09/22/17 08:51 09/22/17 08:51 - Medications Medications: Current Medications Acetaminophen (Tylenol 325mg Tab) 650 mg PO Q6H PRN PRN Reason: Pain, moderate (4-7) Last Admin: 09/20/17 10:26 Dose: 650 mg Acetylcysteine (Acetylcysteine 20%) 2 ml INH RBID [facility] Last Admin: 09/22/17 10:24 Dose: 2 ml Albuterol/Ipratropium (Duoneb 3 Mg/0.5 Mg (3 Ml) Ud) 3 ml INH RBID PRN PRN Reason: Shortness of Breath Last Admin: 09/22/17 10:24 Dose: 3 ml Atorvastatin Calcium (Lipitor) 80 mg PO [facility] Last Admin: 09/21/17 21:30 Dose: 80 mg Bisacodyl (Dulcolax) 5 mg PO DAILY PRN PRN Reason: Constipation Clonidine HCl (Catapres-Tts3 0.3 Mg/24 Hr) 1 patch TD Q7D [facility] Last Admin: 09/19/17 12:12 Dose: 1 patch Clopidogrel Bisulfate (Plavix) 75 mg PO DAILY [facility] Last Admin: 09/22/17 08:19 Dose: 75 mg Enoxaparin Sodium (Lovenox) 40 mg SC DAILY [facility] PRN Reason: Protocol Last Admin: 09/22/17 08:18 Dose: 40 mg Famotidine (Pepcid) 40 mg PO 0630 [facility] Last Admin: 09/22/17 06:40 Dose: 40 mg Guaifenesin (Robitussin) 100 mg PO Q6 PRN PRN Reason: Cough Last Admin: 09/21/17 20:49 Dose: 100 mg Insulin Detemir (Levemir) 10 units SC [facility] Last Admin: 09/21/17 21:48 Dose: 10 units Insulin Human Lispro (Humalog) 0 units SC [facility] PRN Reason: Protocol Last Admin: 09/22/17 12:14 Dose: 1 units Loratadine (Claritin) 10 mg PO DAILY@2100 [facility] Last Admin: 09/21/17 20:40 Dose: 10 mg Losartan Potassium (Cozaar) 100 mg PO DAILY [facility] Last Admin: 09/22/17 08:18 Dose: 100 mg Magnesium Hydroxide (Milk Of Magnesia) 15 ml PO QID PRN PRN Reason: Constipation Meclizine HCl (Antivert) 12.5 mg PO DAILY PRN PRN Reason: Dizziness Metformin HCl (Glucophage) 500 mg PO BID [facility] Last Admin: 09/22/17 08:15 Dose: 500 mg Metoprolol Tartrate (Lopressor) 50 mg PO Q12 [facility] Last Admin: 09/22/17 08:17 Dose: 50 mg Montelukast Sodium (Singulair) 10 mg PO HS [facility] Last Admin: 09/21/17 21:30 Dose: 10 mg Olopatadine HCl (Patanol 0.1% Opht Soln) 2 drop OU TID PRN PRN Reason: Allergy symptoms Last Admin: 09/21/17 17:42 Dose: 2 drop Sitagliptin Phosphate (Januvia) 50 mg PO DAILY [facility] Last Admin: 09/22/17 08:19 Dose: 50 mg Tramadol HCl (Ultram) 50 mg PO Q6 PRN PRN Reason: Pain, severe (8-10) - Labs Labs: 09/20/17 06:00 09/20/17 06:00 - Head Exam Head Exam: ATRAUMATIC, NORMAL INSPECTION, NORMOCEPHALIC - Eye Exam Eye Exam: EOMI, Normal appearance, PERRL Pupil Exam: NORMAL ACCOMODATION - ENT Exam ENT Exam: Mucous Membranes Moist, Normal Exam - Neck Exam Neck Exam: Normal Inspection - Respiratory Exam Respiratory Exam: NORMAL BREATHING PATTERN - Cardiovascular Exam Cardiovascular Exam: REGULAR RHYTHM - GI/Abdominal Exam GI & Abdominal Exam: Soft, Normal Bowel Sounds - Rectal Exam Rectal Exam: NORMAL INSPECTION - Exam External exam: NORMAL EXTERNAL EXAM - Extremities Exam Extremities Exam: Normal Capillary Refill, Normal Inspection - Back Exam Back Exam: NORMAL INSPECTION - Neurological Exam Neurological Exam: Alert, Awake Neuro motor strength exam: Left Upper Extremity: 2/1, Right Upper Extremity: 3, Left Lower Extremity: 2/1, Right Lower Extremity: 3 - Psychiatric Exam Psychiatric exam: Normal Affect, Normal Mood - Skin Skin Exam: Dry Assessment and Plan (1) Acute CVA (cerebrovascular accident) Assessment & Plan: plan for pt, ot rec and speech therapy monitor skin and any cough Status: Acute (2) Contusion Status: Acute (3) Contusion, hip Status: Acute (4) Diabetes mellitus with hyperglycemia Status: Acute (5) DM2 (diabetes mellitus, type 2) Status: Acute (6) DVT prophylaxis Status: Acute (7) Fracture of bone Status: Acute (8) Hemiparesis affecting left side as late effect of cerebrovascular accident Status: Acute (9) HLD (hyperlipidemia) Status: Acute (10) HTN (hypertension) Status: Acute
[2017-09-22] MEDS: Insulin Detemir 100 Units/ml Inj SC SCH (21:32)
[2017-09-22] MEDS: guaiFENesin 600 mg ER Tab PO SCH (22:26)
[2017-09-23 06:33] LABS: MEAN CELL VOLUME 86.1 fl (81.0-99.0); MEAN CORPUSCULAR HEMOGLOBIN 28.4 pg (27.0-31.0); RBC 3.87 Mil/uL (3.80-5.20); RED CELL DISTRIBUTION WIDTH 13.3 % (11.5-14.5); WHITE BLOOD COUNT 4.1 K/uL (4.8-10.8)
[2017-09-23 06:41] LABS: BLOOD UREA NITROGEN 10 mg/dl (7-17); CALCIUM 9.3 mg/dL (8.4-10.2); GFR AFRICAN-AMERICAN > 60; GFR NON-AFRICAN AMERICAN > 60
[2017-09-23] MEDS: Insulin Lispro (humaLOG) 100 Units/ml Inj SC SCH ×4 (07:33→21:20)
[2017-09-23] MEDS: Enoxaparin 40 mg Syringe SC SCH (08:59)
[2017-09-23] MEDS: guaiFENesin 600 mg ER Tab PO SCH ×2 (08:59→21:17)
[2017-09-23] MEDS: Acetylcysteine 20% Inhal Soln (4ml) INH SCH ×2 (10:54→21:08)
[2017-09-23] MEDS: Albuterol-Ipratrop 3 mg / 0.5 (3 ml) UD INH PRN ×2 (10:54→21:08)
--- NOTE | 2017-09-23 11:57 | CP.PCM.PN ---
Subjective - Date & Time of Evaluation Date of Evaluation: 09/23/17 Time of Evaluation: 13:30 - Subjective Subjective: Patient seen and examined during PT.Participating with PT. Strength improving. Hemodynamically stable, afebrile Cough improving , able to expectorate some clear secretions today Complains of urinary frequency Objective - Vital Signs/Intake and Output Vital Signs (last 24 hours): Temp Pulse Resp BP Pulse Ox 98.8 F 91 H 20 160/74 H 97 09/23/17 10:15 09/23/17 10:15 09/23/17 10:15 09/23/17 10:15 09/23/17 08:27 - Medications Medications: Current Medications Acetaminophen (Tylenol 325mg Tab) 650 mg PO Q6H PRN PRN Reason: Pain, moderate (4-7) Last Admin: 09/20/17 10:26 Dose: 650 mg Acetylcysteine (Acetylcysteine 20%) 2 ml INH RBID [facility] Last Admin: 09/23/17 10:54 Dose: 2 ml Albuterol/Ipratropium (Duoneb 3 Mg/0.5 Mg (3 Ml) Ud) 3 ml INH RBID PRN PRN Reason: Shortness of Breath Last Admin: 09/23/17 10:54 Dose: 3 ml Atorvastatin Calcium (Lipitor) 80 mg PO [facility] Last Admin: 09/22/17 21:13 Dose: 80 mg Bisacodyl (Dulcolax) 5 mg PO DAILY PRN PRN Reason: Constipation Clonidine HCl (Catapres-Tts3 0.3 Mg/24 Hr) 1 patch TD Q7D [facility] Last Admin: 09/19/17 12:12 Dose: 1 patch Clopidogrel Bisulfate (Plavix) 75 mg PO DAILY [facility] Last Admin: 09/23/17 09:00 Dose: 75 mg Enoxaparin Sodium (Lovenox) 40 mg SC DAILY [facility] PRN Reason: Protocol Last Admin: 09/23/17 08:59 Dose: 40 mg Famotidine (Pepcid) 40 mg PO 0630 [facility] Last Admin: 09/23/17 05:55 Dose: 40 mg Guaifenesin (Mucinex La) 600 mg PO Q12 [facility] Last Admin: 09/23/17 08:59 Dose: 600 mg Insulin Detemir (Levemir) 10 units SC [facility] Last Admin: 09/22/17 21:32 Dose: 10 units Insulin Human Lispro (Humalog) 0 units SC [facility] PRN Reason: Protocol Last Admin: 09/23/17 07:33 Dose: 1 units Loratadine (Claritin) 10 mg PO DAILY@2100 [facility] Last Admin: 09/22/17 21:13 Dose: 10 mg Losartan Potassium (Cozaar) 100 mg PO DAILY [facility] Last Admin: 09/23/17 08:57 Dose: 100 mg Magnesium Hydroxide (Milk Of Magnesia) 15 ml PO QID PRN PRN Reason: Constipation Meclizine HCl (Antivert) 12.5 mg PO DAILY PRN PRN Reason: Dizziness Metformin HCl (Glucophage) 500 mg PO BID [facility] Last Admin: 09/23/17 08:58 Dose: 500 mg Metoprolol Tartrate (Lopressor) 50 mg PO Q12 [facility] Last Admin: 09/23/17 08:58 Dose: 50 mg Montelukast Sodium (Singulair) 10 mg PO HS [facility] Last Admin: 09/22/17 21:13 Dose: 10 mg Olopatadine HCl (Patanol 0.1% Opht Soln) 2 drop OU TID PRN PRN Reason: Allergy symptoms Last Admin: 09/21/17 17:42 Dose: 2 drop Sitagliptin Phosphate (Januvia) 50 mg PO DAILY [facility] Last Admin: 09/23/17 08:58 Dose: 50 mg Tramadol HCl (Ultram) 50 mg PO Q6 PRN PRN Reason: Pain, severe (8-10) - Labs Labs: 09/23/17 05:20 09/23/17 05:20 - Constitutional Appears: Non-toxic, No Acute Distress - Head Exam Head Exam: ATRAUMATIC, NORMAL INSPECTION, NORMOCEPHALIC - Eye Exam Eye Exam: EOMI, Normal appearance, PERRL Pupil Exam: NORMAL ACCOMODATION - ENT Exam ENT Exam: Mucous Membranes Moist, Normal Exam - Neck Exam Neck Exam: Full ROM, Normal Inspection - Respiratory Exam Respiratory Exam: Clear to Ausculation Bilateral, Rhonchi. absent: Accessory Muscle Use, Prolonged Expiratory Phase, Wheezes, Respiratory Distress - Cardiovascular Exam Cardiovascular Exam: REGULAR RHYTHM, RRR, +S1, +S2. absent: JVD - GI/Abdominal Exam GI & Abdominal Exam: Soft, Normal Bowel Sounds. absent: Distended, Guarding, Tenderness, Rebound - Rectal Exam Rectal Exam: Deferred - Extremities Exam Extremities Exam: Full ROM, Normal Capillary Refill, Normal Inspection. absent : Pedal Edema - Back Exam Back Exam: NORMAL INSPECTION - Neurological Exam Neurological Exam: Alert, Awake, CN II-XII Intact, Oriented x3 Additional comments: left side weakness - Psychiatric Exam Psychiatric exam: Normal Affect, Normal Mood - Skin Skin Exam: Dry, Intact, Normal Color, Warm Assessment and Plan - Assessment and Plan (Free Text) Assessment: 71 yo female with history of DMII and HTN admitted at [facility] because of dizziness and weakness of the left arm. She was admitted and diagnosed with acute CVA after MRI showed right sided pontine infarct. At present in acute rehab , participating with PT and improving. Cough also improving. 1. Acute CVA continue Plavix and statin continue PT/OT Dr Jennings on neuro consult 2. HTN BP stable but was on the low side so norvasc was discontinued continue Losartan, Metoprolol and Clonidine patch 3. DMII relatively controlled continue Levemir, Metformin and Januvia 4. Coughing probably secondary to post nasal drip or URI . With rhonchi on physical exam Continue Duonebsrobitussin continue Claritin 10mg PO daily Acetylcysteine via nebulizer BID 4. DVT prophylaxis continue Lovenox
--- NOTE | 2017-09-23 12:08 | PSY.TMCNF ---
Nursing - Vital Signs Vital Signs (Last 8 hours): Vital Signs 09/23/17 09/23/17 09/23/17 08:27 08:57 08:58 Temperature 98.8 F Pulse Rate 92 H 92 H 92 H Respiratory 20 Rate Blood Pressure 145/62 145/62 145/62 O2 Sat by Pulse 97 Oximetry 09/23/17 09/23/17 10:13 10:15 Temperature 98.8 F Pulse Rate 91 H 91 H Respiratory 20 Rate Blood Pressure 160/74 H 160/74 H O2 Sat by Pulse Oximetry Pain: 0 - Precautions: Precautions: Fall Prevention, Aspiration - Medications/Other Issues Comment: Pt coughing - Consults Comment: Dr. Jennings, Dr. Maldonado, Dr. Martins - Toileting Toileting: Minimal Assistance - Bladder Management Bladder Pattern: Normal Voiding Method: Toilet, Bedpan Bladder Management: Minimal Assistance - Bowel Management Bowel Pattern: Normal Comment: stool softener Bowel Management: Minimal Assistance Frequency of Accidents: none - Transfers Transfers: Minimal Assistance - ADL's ADL's: Minimal Assistance - Pain Management Comments: Denies pain - Patient/Family Teaching Comments: Post cva care, safety - Goals/Time Frame Comments: Per multidisciplinary team. - Provider Provider: pastora Landers Physical Therapy - Bed Mobility Bed Mobility: Moderate Assistance - Transfers Wheelchair to Mat: Verbal Cues, Minimal Assistance Sit to Stand: Verbal Cues, Minimal Assistance - Ambulation Assistive Devices: Narrow base quad cane - Stair Negotiation Stairs: Level of Assistance: Verbal Cues, Moderate Assistance Handrails: Right Stairs: Assistive Devices: Right Handrail - Standing Balance Static Stand: Contact Guard Assist Dynamic Stand: Minimal Assistance, Moderate Assistance - Pain Pain (assessed during therapy session): 0 - Insight/Carryover Insight/Carryover: Good - Patient/Family Education Comment: Pt education provided for increased safety awareness and proper tehcniques during functional mobility training - Assessment/Plan Assessment: Pt continues to be agreeable to participate in 1:1 and group recreation therapy sessions. Pt participates in group sessions of paulie kaur, and brendan. Pt participates in 1:1 sessions and oriented to new leisure tasks to improve arousal level, direction following, and tasks involving both hands such as coloring, word searches, and puzzles. Pt's mood continues to be stable- positive and enjoys socializing with peers, staff, and will continue to benefit from participating in recreation therapy sessions. - Goals Timeframe: 2 weeks Goals: Sit < > supine with CGA. Sit < > stand CGA. Bed < > chair transfers CGA. Pt will ambulate 150 ft with NBQC and CGA. Pt will ascend/descend flight of stairs with min A - Provider Therapist: elier License Number: [id number] Occupational Therapy - Arousal/Attention/Orientation Patient Orientation: Person, Place, Time, Appropriate to Age, Appropriate to Situation - ADL/IADL Self Feeding: Independent, Set-up Help Grooming: Supervision, Verbal Cues, Set-up Help Bathing-Upper Extremity: Verbal Cues, Set-up Help, Moderate Assistance Bathing-Lower Extremity: Verbal Cues, Set-up Help, Maximum Assistance Dressing-Upper Extremity: Verbal Cues, Set-up Help, Moderate Assistance Dressing-Lower Extremity: Verbal Cues, Set-up Help, Moderate Assistance - Sitting Balance Static Sitting: Supervision Dynamic Sitting: Minimal Assistance Comment: seated unsupported at edge of bed - Transfers Wheelchair to Bed Transfers: Verbal Cues, Set-up Help, Minimal Assistance Toilet Transfers: Verbal Cues, Set-up Help, Minimal Assistance Comment: shower transfers: Min assist and verbal cues - Wheelchair Management Level of Assistance: Minimal Assistance Distance (ft.): 30 - Upper Extremity Status Right Upper Extremity Comment: AROM is WNLS; strength 4/5 Left Upper Extremity Comment: PROM IN LUE is WFLS; AROM limited by impiared strength--shoulder 2/5, elbow flex/extension: 2/5, supination/pronation 2/5, wrist 2/5, digits 1/5 to 2-/5 inconsistent. no subluxation - Pain Pain (assessed during therapy session): 0 - Insight/Carryover Insight/Carryover: Good - Patient/Family Education Comment: Pt education provided for increased safety awareness and proper tehcniques during functional mobility training - Assessment/Plan Assessment: Pt continues to be agreeable to participate in 1:1 and group recreation therapy sessions. Pt participates in group sessions of paulie kaur, and brendan. Pt participates in 1:1 sessions and oriented to new leisure tasks to improve arousal level, direction following, and tasks involving both hands such as coloring, word searches, and puzzles. Pt's mood continues to be stable- positive and enjoys socializing with peers, staff, and will continue to benefit from participating in recreation therapy sessions. - Goals Timeframe: 2 weeks Goals: Sit < > supine with CGA. Sit < > stand CGA. Bed < > chair transfers CGA. Pt will ambulate 150 ft with NBQC and CGA. Pt will ascend/descend flight of stairs with min A - Provider Therapist: Lynn Barton, OTR/L Speech Therapy - Consult Information Patient on Program: Yes Medical Diagnosis: CVA Treatment Diagnosis: Speech/cognition WFL. Swallow function WFL - Assessment Comment: WFL - pt on bite-sized solids/thin liquids - Plan Assessment: Pt continues to be agreeable to participate in 1:1 and group recreation therapy sessions. Pt participates in group sessions of bingo, cards, and dominoes. Pt participates in 1:1 sessions and oriented to new leisure tasks to improve arousal level, direction following, and tasks involving both hands such as coloring, word searches, and puzzles. Pt's mood continues to be stable- positive and enjoys socializing with peers, staff, and will continue to benefit from participating in recreation therapy sessions. - Provider Therapist: Maegan Sinclair License Number: [id number] Recreational Therapy - Participation Participation: Participates in Individual and/or Group Sessions - Attendance Attendance: 5-6 times per week - Activities Leisure Activities: Cards and Games - Socialization Level of Socialization: Initiates/interacts freely with care givers and peer - Diversional Time Diversional Time: participates in 1:1 and group recreation therapy sessions - Assessment Assessment/Plan: Pt continues to be agreeable to participate in 1:1 and group recreation therapy sessions. Pt participates in group sessions of bingo, cards, and dominoes. Pt participates in 1:1 sessions and oriented to new leisure tasks to improve arousal level, direction following, and tasks involving both hands such as coloring, word searches, and puzzles. Pt's mood continues to be stable- positive and enjoys socializing with peers, staff, and will continue to benefit from participating in recreation therapy sessions. Problems Currently Limiting Participation: L side weakness, decrease leisure awareness level, flat affect Goals and Time Frame: Pt will be encouraged to participate in 1:1 and group recreation therapy sessions 3-5x week to improve leisure awareness level, improve mood state, and improve attention to task. - Provider Therapist: Lamar Patel, EXTRUSION OPERATOR #[id number] Nutrition - Current Diet Current Diet/ Supplement/ Feedings: advanced bite size thin liquids moderate consistent CHO. Glucerna shake 8 ounces 1 per day - Appetite Percent Meal Consumed: 75-100% - Comments Comments: Post cva care, safety - Assessment/Goals/Time Frame Assessment/Goals/Time Frame: Pt coughing - Provider Provider: Janie Middleton RD Case Management - Psychosocial Assessment Support Systems: Gerardo Sidhu (son)- [phone]. Edmond Martino (brother)- Psychological Interventions/Needs: Patient is AAOx3 and can verbalize needs. Patient anxious and worried regarding returning home as she has limited support during the day Discharge Concerns: Patient currently requiring mod-max A overall with some return in strength, however, with limited support at home Patient/Family Meeting: CM met with patient and rehab team Intervention/Goal/Outcome:: 1. Plan: Home vs [facility] ([place]) depending on patient 's progress in therapy, patient continues to demonstrate improvement in strength. 2. tentative discharge date: 09/28/2017. 3. continued emotional support. - Discharge Plan Discharge Plan: Subacute care - Provider Provider: MORGAN Hartley, SELF SEALING [employer]EL TANK REPAIRER License Number: [id number] Rehabilitation Plan - Treatment Plan Treatment Plan: Physical Therapy, Occupational Therapy, Speech, Dietary, Patient /Family Education - Recommendation Recommendation: Physical Therapy, Occupational Therapy, Speech, Dietary, Patient /Family Education - Discharge Plan Discharge to: Subacute (dc 29)
--- NOTE | 2017-09-23 12:36 | CP.PCM.PN ---
Subjective - Date & Time of Evaluation Date of Evaluation: 09/23/17 Time of Evaluation: 10:00 - Subjective Subjective: no acute complaints at present Objective - Vital Signs/Intake and Output Vital Signs (last 24 hours): Temp Pulse Resp BP Pulse Ox 98.8 F 91 H 20 160/74 H 97 09/23/17 10:15 09/23/17 10:15 09/23/17 10:15 09/23/17 10:15 09/23/17 08:27 - Medications Medications: Current Medications Acetaminophen (Tylenol 325mg Tab) 650 mg PO Q6H PRN PRN Reason: Pain, moderate (4-7) Last Admin: 09/20/17 10:26 Dose: 650 mg Acetylcysteine (Acetylcysteine 20%) 2 ml INH RBID [facility] Last Admin: 09/23/17 10:54 Dose: 2 ml Albuterol/Ipratropium (Duoneb 3 Mg/0.5 Mg (3 Ml) Ud) 3 ml INH RBID PRN PRN Reason: Shortness of Breath Last Admin: 09/23/17 10:54 Dose: 3 ml Atorvastatin Calcium (Lipitor) 80 mg PO HS [facility] Last Admin: 09/22/17 21:13 Dose: 80 mg Bisacodyl (Dulcolax) 5 mg PO DAILY PRN PRN Reason: Constipation Clonidine HCl (Catapres-Tts3 0.3 Mg/24 Hr) 1 patch TD Q7D [facility] Last Admin: 09/19/17 12:12 Dose: 1 patch Clopidogrel Bisulfate (Plavix) 75 mg PO DAILY [facility] Last Admin: 09/23/17 09:00 Dose: 75 mg Enoxaparin Sodium (Lovenox) 40 mg SC DAILY [facility] PRN Reason: Protocol Last Admin: 09/23/17 08:59 Dose: 40 mg Famotidine (Pepcid) 40 mg PO 0630 [facility] Last Admin: 09/23/17 05:55 Dose: 40 mg Guaifenesin (Mucinex La) 600 mg PO Q12 [facility] Last Admin: 09/23/17 08:59 Dose: 600 mg Insulin Detemir (Levemir) 10 units SC HS [facility] Last Admin: 09/22/17 21:32 Dose: 10 units Insulin Human Lispro (Humalog) 0 units SC [facility] PRN Reason: Protocol Last Admin: 09/23/17 12:21 Dose: 1 units Loratadine (Claritin) 10 mg PO DAILY@2100 [facility] Last Admin: 09/22/17 21:13 Dose: 10 mg Losartan Potassium (Cozaar) 100 mg PO DAILY [facility] Last Admin: 09/23/17 08:57 Dose: 100 mg Magnesium Hydroxide (Milk Of Magnesia) 15 ml PO QID PRN PRN Reason: Constipation Meclizine HCl (Antivert) 12.5 mg PO DAILY PRN PRN Reason: Dizziness Metformin HCl (Glucophage) 500 mg PO BID [facility] Last Admin: 09/23/17 08:58 Dose: 500 mg Metoprolol Tartrate (Lopressor) 50 mg PO Q12 [facility] Last Admin: 09/23/17 08:58 Dose: 50 mg Montelukast Sodium (Singulair) 10 mg PO HS [facility] Last Admin: 09/22/17 21:13 Dose: 10 mg Olopatadine HCl (Patanol 0.1% Opht Soln) 2 drop OU TID PRN PRN Reason: Allergy symptoms Last Admin: 09/21/17 17:42 Dose: 2 drop Sitagliptin Phosphate (Januvia) 50 mg PO DAILY [facility] Last Admin: 09/23/17 08:58 Dose: 50 mg Tramadol HCl (Ultram) 50 mg PO Q6 PRN PRN Reason: Pain, severe (8-10) - Labs Labs: 09/23/17 05:20 09/23/17 05:20 - Head Exam Head Exam: ATRAUMATIC, NORMAL INSPECTION, NORMOCEPHALIC - Eye Exam Eye Exam: EOMI, Normal appearance, PERRL Pupil Exam: NORMAL ACCOMODATION - ENT Exam ENT Exam: Mucous Membranes Moist, Normal Exam - Neck Exam Neck Exam: Full ROM, Normal Inspection - Respiratory Exam Respiratory Exam: NORMAL BREATHING PATTERN - Cardiovascular Exam Cardiovascular Exam: REGULAR RHYTHM - GI/Abdominal Exam GI & Abdominal Exam: Soft, Normal Bowel Sounds - Rectal Exam Rectal Exam: NORMAL INSPECTION - Exam External exam: NORMAL EXTERNAL EXAM - Extremities Exam Extremities Exam: Full ROM, Normal Capillary Refill, Normal Inspection - Back Exam Back Exam: NORMAL INSPECTION - Neurological Exam Neurological Exam: Alert, Awake Neuro motor strength exam: Left Upper Extremity: 3, Right Upper Extremity: 4, Left Lower Extremity: 3, Right Lower Extremity: 4 - Psychiatric Exam Psychiatric exam: Normal Affect, Normal Mood - Skin Skin Exam: Dry, Normal Color Assessment and Plan (1) Acute CVA (cerebrovascular accident) Assessment & Plan: plan fo rpt, ot rec therapy fo rDc 29 to subacute status post team Status: Acute (2) Contusion Status: Acute (3) Contusion, hip Status: Acute (4) Diabetes mellitus with hyperglycemia Status: Acute (5) DM2 (diabetes mellitus, type 2) Status: Acute (6) DVT prophylaxis Status: Acute (7) Fracture of bone Status: Acute (8) Hemiparesis affecting left side as late effect of cerebrovascular accident Status: Acute (9) HLD (hyperlipidemia) Status: Acute (10) HTN (hypertension) Status: Acute
[2017-09-23] MEDS: Insulin Detemir 100 Units/ml Inj SC SCH (22:00)
[2017-09-24] MEDS: Insulin Lispro (humaLOG) 100 Units/ml Inj SC SCH ×4 (07:09→21:00)
[2017-09-24] MEDS: Albuterol-Ipratrop 3 mg / 0.5 (3 ml) UD INH PRN ×2 (08:36→19:44)
[2017-09-24] MEDS: Acetylcysteine 20% Inhal Soln (4ml) INH SCH ×2 (08:36→19:45)
[2017-09-24] MEDS: Enoxaparin 40 mg Syringe SC SCH (08:37)
[2017-09-24] MEDS: guaiFENesin 600 mg ER Tab PO SCH ×2 (08:38→20:21)
[2017-09-24] MEDS: Insulin Detemir 100 Units/ml Inj SC SCH (21:58)
[2017-09-25] MEDS: Insulin Lispro (humaLOG) 100 Units/ml Inj SC SCH ×4 (06:57→21:00)
[2017-09-25] MEDS: Enoxaparin 40 mg Syringe SC SCH (08:21)
[2017-09-25] MEDS: guaiFENesin 600 mg ER Tab PO SCH ×2 (08:25→20:17)
[2017-09-25] MEDS: Acetylcysteine 20% Inhal Soln (4ml) INH SCH ×2 (08:53→19:16)
[2017-09-25] MEDS: Albuterol-Ipratrop 3 mg / 0.5 (3 ml) UD INH PRN ×2 (08:53→19:16)
--- NOTE | 2017-09-25 12:48 | CP.PCM.PN ---
Subjective - Date & Time of Evaluation Date of Evaluation: 09/25/17 Time of Evaluation: 12:15 - Subjective Subjective: No fever her cough is better denies CP no SOB no abd pain Objective - Vital Signs/Intake and Output Vital Signs (last 24 hours): Temp Pulse Resp BP Pulse Ox 97.7 F 79 20 128/57 L 96 09/25/17 09:03 09/25/17 09:03 09/25/17 09:03 09/25/17 09:03 09/25/17 09:03 - Medications Medications: Current Medications Acetaminophen (Tylenol 325mg Tab) 650 mg PO Q6H PRN PRN Reason: Pain, moderate (4-7) Last Admin: 09/20/17 10:26 Dose: 650 mg Acetylcysteine (Acetylcysteine 20%) 2 ml INH RBID [facility] Last Admin: 09/25/17 08:53 Dose: Not Given Albuterol/Ipratropium (Duoneb 3 Mg/0.5 Mg (3 Ml) Ud) 3 ml INH RBID PRN PRN Reason: Shortness of Breath Last Admin: 09/25/17 08:53 Dose: 3 ml Atorvastatin Calcium (Lipitor) [address] [facility] Last Admin: 09/24/17 21:58 Dose: 80 mg Bisacodyl (Dulcolax) 5 mg PO DAILY PRN PRN Reason: Constipation Clonidine HCl (Catapres-Tts3 0.3 Mg/24 Hr) 1 patch TD Q7D [facility] Last Admin: 09/19/17 12:12 Dose: 1 patch Clopidogrel Bisulfate (Plavix) 75 mg PO DAILY [facility] Last Admin: 09/25/17 08:21 Dose: 75 mg Enoxaparin Sodium (Lovenox) 40 mg SC DAILY [facility] PRN Reason: Protocol Last Admin: 09/25/17 08:21 Dose: 40 mg Famotidine (Pepcid) 40 mg PO 0630 [facility] Last Admin: 09/25/17 06:36 Dose: 40 mg Guaifenesin (Mucinex La) 600 mg PO Q12 [facility] Last Admin: 09/25/17 08:25 Dose: 600 mg Insulin Detemir (Levemir) [address] [facility] Last Admin: 09/24/17 21:58 Dose: 10 units Insulin Human Lispro (Humalog) 0 units SC [facility] PRN Reason: Protocol Last Admin: 09/25/17 11:30 Dose: 3 units Loratadine (Claritin) 10 mg PO DAILY@2100 [facility] Last Admin: 09/24/17 20:21 Dose: 10 mg Losartan Potassium (Cozaar) 100 mg PO DAILY [facility] Last Admin: 09/25/17 08:25 Dose: 100 mg Magnesium Hydroxide (Milk Of Magnesia) 15 ml PO QID PRN PRN Reason: Constipation Meclizine HCl (Antivert) 12.5 mg PO DAILY PRN PRN Reason: Dizziness Metformin HCl (Glucophage) 500 mg PO BID [facility] Last Admin: 09/25/17 08:22 Dose: 500 mg Metoprolol Tartrate (Lopressor) 50 mg PO Q12 [facility] Last Admin: 09/25/17 08:26 Dose: 50 mg Montelukast Sodium (Singulair) 10 mg PO HS [facility] Last Admin: 09/24/17 21:58 Dose: 10 mg Olopatadine HCl (Patanol 0.1% Opht Soln) 2 drop OU TID PRN PRN Reason: Allergy symptoms Last Admin: 09/21/17 17:42 Dose: 2 drop Sitagliptin Phosphate (Januvia) 50 mg PO DAILY [facility] Last Admin: 09/25/17 08:26 Dose: 50 mg Tramadol HCl (Ultram) 50 mg PO Q6 PRN PRN Reason: Pain, severe (8-10) - Labs Labs: 09/23/17 05:20 09/23/17 05:20 - Constitutional Appears: No Acute Distress - Head Exam Head Exam: NORMAL INSPECTION, NORMOCEPHALIC - Eye Exam Eye Exam: Normal appearance Pupil Exam: NORMAL ACCOMODATION - ENT Exam ENT Exam: Mucous Membranes Dry, Normal External Ear Exam - Neck Exam Neck Exam: Full ROM. absent: Meningismus - Respiratory Exam Respiratory Exam: Rhonchi, Wheezes, NORMAL BREATHING PATTERN. absent: Respiratory Distress - Cardiovascular Exam Cardiovascular Exam: REGULAR RHYTHM, +S1, +S2 - GI/Abdominal Exam GI & Abdominal Exam: Soft, Normal Bowel Sounds. absent: Tenderness - Extremities Exam Extremities Exam: Normal Capillary Refill. absent: Calf Tenderness - Back Exam Back Exam: absent: CVA tenderness (L), CVA tenderness (R) - Neurological Exam Neurological Exam: Alert, Awake, Oriented x3 Neuro motor strength exam: Left Upper Extremity: 3, Right Upper Extremity: 5, Left Lower Extremity: 3, Right Lower Extremity: 5 - Psychiatric Exam Psychiatric exam: Normal Affect, Normal Mood - Skin Skin Exam: Dry, Normal Color, Warm Assessment and Plan - Assessment and Plan (Free Text) Assessment: 71 yo female with history of DMII and HTN admitted at [facility] because of dizziness and weakness of the left arm. She was admitted and diagnosed with acute CVA after MRI showed right sided pontine infarct. At present in acute rehab , participating with PT and improving. 1. Acute CVA continue Plavix and statin continue PT/OT Dr eJnnings on neuro consult 2. HTN BP stable continue Losartan, Metoprolol and Clonidine patch 3. DMII with hyperglycemia increase Levemir to 14 units q hs continue Metformin and Januvia 4. Cough ? sec to CHERISE inhibitor, underlying URI cannot be ruled out Continue Duonebs,robitussin no fever Lisinopril was d/c 4. DVT prophylaxis continue Lovenox
--- NOTE | 2017-09-25 13:22 | CP.PCM.PN ---
Subjective - Date & Time of Evaluation Date of Evaluation: 09/25/17 Time of Evaluation: 11:30 - Subjective Subjective: no acute complaints Objective - Vital Signs/Intake and Output Vital Signs (last 24 hours): Temp Pulse Resp BP Pulse Ox 97.7 F 79 20 128/57 L 96 09/25/17 09:03 09/25/17 09:03 09/25/17 09:03 09/25/17 09:03 09/25/17 09:03 - Medications Medications: Current Medications Acetaminophen (Tylenol 325mg Tab) 650 mg PO Q6H PRN PRN Reason: Pain, moderate (4-7) Last Admin: 09/20/17 10:26 Dose: 650 mg Acetylcysteine (Acetylcysteine 20%) 2 ml INH RBID [facility] Last Admin: 09/25/17 08:53 Dose: Not Given Albuterol/Ipratropium (Duoneb 3 Mg/0.5 Mg (3 Ml) Ud) 3 ml INH RBID PRN PRN Reason: Shortness of Breath Last Admin: 09/25/17 08:53 Dose: 3 ml Atorvastatin Calcium (Lipitor) 80 mg PO [facility] Last Admin: 09/24/17 21:58 Dose: 80 mg Bisacodyl (Dulcolax) 5 mg PO DAILY PRN PRN Reason: Constipation Clonidine HCl (Catapres-Tts3 0.3 Mg/24 Hr) 1 patch TD Q7D [facility] Last Admin: 09/19/17 12:12 Dose: 1 patch Clopidogrel Bisulfate (Plavix) 75 mg PO DAILY [facility] Last Admin: 09/25/17 08:21 Dose: 75 mg Enoxaparin Sodium (Lovenox) 40 mg SC DAILY [facility] PRN Reason: Protocol Last Admin: 09/25/17 08:21 Dose: 40 mg Famotidine (Pepcid) 40 mg PO 0630 [facility] Last Admin: 09/25/17 06:36 Dose: 40 mg Guaifenesin (Mucinex La) 600 mg PO Q12 [facility] Last Admin: 09/25/17 08:25 Dose: 600 mg Insulin Detemir (Levemir) 10 units SC [facility] Last Admin: 09/24/17 21:58 Dose: 10 units Insulin Human Lispro (Humalog) 0 units SC [facility] PRN Reason: Protocol Last Admin: 09/25/17 11:30 Dose: 3 units Loratadine (Claritin) 10 mg PO DAILY@2100 [facility] Last Admin: 09/24/17 20:21 Dose: 10 mg Losartan Potassium (Cozaar) 100 mg PO DAILY [facility] Last Admin: 09/25/17 08:25 Dose: 100 mg Magnesium Hydroxide (Milk Of Magnesia) 15 ml PO QID PRN PRN Reason: Constipation Meclizine HCl (Antivert) 12.5 mg PO DAILY PRN PRN Reason: Dizziness Metformin HCl (Glucophage) 500 mg PO BID [facility] Last Admin: 09/25/17 08:22 Dose: 500 mg Metoprolol Tartrate (Lopressor) 50 mg PO Q12 [facility] Last Admin: 09/25/17 08:26 Dose: 50 mg Montelukast Sodium (Singulair) 10 mg PO HS [facility] Last Admin: 09/24/17 21:58 Dose: 10 mg Olopatadine HCl (Patanol 0.1% Opht Soln) 2 drop OU TID PRN PRN Reason: Allergy symptoms Last Admin: 09/21/17 17:42 Dose: 2 drop Sitagliptin Phosphate (Januvia) 50 mg PO DAILY [facility] Last Admin: 09/25/17 08:26 Dose: 50 mg Tramadol HCl (Ultram) 50 mg PO Q6 PRN PRN Reason: Pain, severe (8-10) - Labs Labs: 09/23/17 05:20 09/23/17 05:20 - Head Exam Head Exam: ATRAUMATIC, NORMAL INSPECTION, NORMOCEPHALIC - Eye Exam Eye Exam: EOMI, Normal appearance, PERRL Pupil Exam: NORMAL ACCOMODATION - ENT Exam ENT Exam: Mucous Membranes Moist, Normal Exam - Neck Exam Neck Exam: Normal Inspection - Respiratory Exam Respiratory Exam: NORMAL BREATHING PATTERN - Cardiovascular Exam Cardiovascular Exam: REGULAR RHYTHM - GI/Abdominal Exam GI & Abdominal Exam: Soft, Normal Bowel Sounds - Rectal Exam Rectal Exam: NORMAL INSPECTION - Exam External exam: NORMAL EXTERNAL EXAM - Extremities Exam Extremities Exam: Full ROM, Normal Capillary Refill - Back Exam Back Exam: NORMAL INSPECTION - Neurological Exam Neurological Exam: Alert, Awake Neuro motor strength exam: Left Upper Extremity: 2/1, Right Upper Extremity: 3, Left Lower Extremity: 2/1, Right Lower Extremity: 3 - Psychiatric Exam Psychiatric exam: Normal Affect, Normal Mood - Skin Skin Exam: Dry, Normal Color Assessment and Plan (1) Acute CVA (cerebrovascular accident) Assessment & Plan: plan to continue with physical, occupational, rec and speec therapy feels better with congestion Status: Acute (2) Contusion Status: Acute (3) Contusion, hip Status: Acute (4) Diabetes mellitus with hyperglycemia Status: Acute (5) DM2 (diabetes mellitus, type 2) Status: Acute (6) DVT prophylaxis Status: Acute (7) Fracture of bone Status: Acute (8) Hemiparesis affecting left side as late effect of cerebrovascular accident Status: Acute (9) HLD (hyperlipidemia) Status: Acute (10) HTN (hypertension) Status: Acute
[2017-09-25] MEDS: Insulin Detemir 100 Units/ml Inj SC SCH (21:30)
[2017-09-26] MEDS: Insulin Lispro (humaLOG) 100 Units/ml Inj SC SCH ×4 (07:00→21:07)
[2017-09-26] MEDS: Albuterol-Ipratrop 3 mg / 0.5 (3 ml) UD INH PRN ×2 (07:32→18:59)
[2017-09-26] MEDS: Acetylcysteine 20% Inhal Soln (4ml) INH SCH ×2 (07:32→18:59)
[2017-09-26 07:52] LABS: HEMOGLOBIN 11.1 g/dL (12.0-16.0); MEAN CORPUSCULAR HEMOGLOBIN 28.3 pg (27.0-31.0); MEAN CORPUSCULAR HGB CONC 32.9 g/dL (33.0-37.0); RBC 3.93 Mil/uL (3.80-5.20); RED CELL DISTRIBUTION WIDTH 13.2 % (11.5-14.5)
[2017-09-26 07:57] LABS: BLOOD UREA NITROGEN 8 mg/dl (7-17); CALCIUM 9.4 mg/dL (8.4-10.2); GFR AFRICAN-AMERICAN > 60; GFR NON-AFRICAN AMERICAN > 60
[2017-09-26] MEDS: guaiFENesin 600 mg ER Tab PO SCH ×2 (09:20→21:00)
[2017-09-26] MEDS: Enoxaparin 40 mg Syringe SC SCH (09:20)
[2017-09-26] MEDS: Olopatadine 0.1% Opht SOLN OU PRN (09:24)
--- NOTE | 2017-09-26 11:13 | RAD ---
HISTORY: cough COMPARISON: Comparison chest 09/16/2017. TECHNIQUE: Chest PA and lateral FINDINGS: LUNGS: Mild atelectasis and or scarring changes left lung base. PLEURA: No significant pleural effusion identified. No pneumothorax apparent. CARDIOVASCULAR: Normal. OSSEOUS STRUCTURES: No significant abnormalities. VISUALIZED UPPER ABDOMEN: Normal. OTHER FINDINGS: None. IMPRESSION: Mild atelectasis and or scarring changes left lung base.
[2017-09-26] MEDS: Insulin Detemir 100 Units/ml Inj SC SCH (22:12)
[2017-09-27] MEDS: Insulin Lispro (humaLOG) 100 Units/ml Inj SC SCH ×4 (07:19→21:40)
[2017-09-27] MEDS: Albuterol-Ipratrop 3 mg / 0.5 (3 ml) UD INH PRN ×2 (08:03→19:13)
[2017-09-27] MEDS: Acetylcysteine 20% Inhal Soln (4ml) INH SCH ×2 (08:04→19:12)
[2017-09-27] MEDS: guaiFENesin 600 mg ER Tab PO SCH ×2 (09:20→21:39)
[2017-09-27] MEDS: Enoxaparin 40 mg Syringe SC SCH (09:20)
[2017-09-27] MEDS: Olopatadine 0.1% Opht SOLN OU PRN (17:23)
[2017-09-27] MEDS: Insulin Detemir 100 Units/ml Inj SC SCH (21:41)
[2017-09-28] MEDS: Insulin Lispro (humaLOG) 100 Units/ml Inj SC SCH ×2 (07:34→12:27)
[2017-09-28] MEDS: Albuterol-Ipratrop 3 mg / 0.5 (3 ml) UD INH PRN (07:39)
[2017-09-28 07:40] VITALS: BP 154/71; PULSE 86; RESP 22; TEMP 96.6; O2SAT 100
[2017-09-28] MEDS: Acetylcysteine 20% Inhal Soln (4ml) INH SCH (07:43)
[2017-09-28] MEDS: Enoxaparin 40 mg Syringe SC SCH (09:03)
[2017-09-28] MEDS: Olopatadine 0.1% Opht SOLN OU PRN (09:03)
[2017-09-28] MEDS: guaiFENesin 600 mg ER Tab PO SCH (09:03)
--- NOTE | 2017-09-28 11:49 | CP.PCM.DIS ---
Provider - Provider Date of Admission: 09/04/17 20:35 Attending physician: John Duncan MD Primary care physician: Poonam Mcfarland MD Consults: Dr Martins Time Spent in preparation of Discharge (in minutes): 25 Diagnosis - Discharge Diagnosis (1) Acute CVA (cerebrovascular accident) Status: Acute Comment: continue Plavix and statin. control BP. continue PT/OT on CATHY (2) HTN (hypertension) Status: Chronic Comment: BP stable. continue Clonidine patch, Losartan and Metoprolol (3) DM2 (diabetes mellitus, type 2) Status: Chronic Comment: BS relatively stable. continue Levemir 14 units SC hs. accuchek ACHS with low Lispro coverage. continue Metformin and [place] [facility] Course - Lab Results Lab Results: Micro Results 09/07/17 18:50 Urine,Catheterized Urine Culture - Final No Growth (<1,000 CFU/ML) Most Recent Lab Values WBC 7.0 K/uL (4.8-10.8) D 09/26/17 05:30 RBC 3.93 Mil/uL (3.80-5.20) 09/26/17 05:30 Hgb 11.1 g/dL (12.0-16.0) L 09/26/17 05:30 Hct 33.8 % (34.0-47.0) L 09/26/17 05:30 MCV 86.0 fl (81.0-99.0) 09/26/17 05:30 MCH 28.3 pg (27.0-31.0) 09/26/17 05:30 MCHC 32.9 g/dL (33.0-37.0) L 09/26/17 05:30 RDW 13.2 % (11.5-14.5) 09/26/17 05:30 Plt Count 380 K/uL (130-400) 09/26/17 05:30 Sodium 138 mmol/l (132-148) 09/26/17 05:25 Potassium 4.3 MMOL/L (3.6-5.0) 09/26/17 05:25 Chloride 100 mmol/L (98-107) 09/26/17 05:25 Carbon Dioxide 27 mmol/L (22-30) 09/26/17 05:25 Anion Gap 15 (10-20) 09/26/17 05:25 BUN 8 mg/dl (7-17) 09/26/17 05:25 Creatinine 0.4 mg/dl (0.7-1.2) L 09/26/17 05:25 Est GFR ( Amer) > 60 09/26/17 05:25 Est GFR (Non-Af Amer) > 60 09/26/17 05:25 POC Glucose (mg/dL) 184 mg/dL (65-110) H 09/28/17 11:05 Random Glucose 177 mg/dL (65-105) H 09/26/17 05:25 Calcium 9.4 mg/dL (8.4-10.2) 09/26/17 05:25 Urine Color Straw (YELLOW) 09/07/17 18:50 Urine Clarity Slighty-cloudy (Clear) 09/07/17 18:50 Urine pH 7.0 (5.0-8.0) 09/07/17 18:50 Ur Specific [place] 1.006 (1.003-1.030) 09/07/17 18:50 Urine Protein Negative mg/dL (NEGATIVE) 09/07/17 18:50 Urine Glucose (UA) 150 mg/dL (Normal) 09/07/17 18:50 Urine Ketones Negative mg/dL (NEGATIVE) 09/07/17 18:50 Urine Blood Negative (NEGATIVE) 09/07/17 18:50 Urine Nitrate Negative (NEGATIVE) 09/07/17 18:50 Urine Bilirubin Negative (NEGATIVE) 09/07/17 18:50 Urine Urobilinogen 0.2-1.0 mg/dL (0.2-1.0) 09/07/17 18:50 Ur Leukocyte Esterase Neg [place]/uL (Negative) 09/07/17 18:50 Urine RBC (Auto) 2 /hpf (0-3) 09/07/17 18:50 Urine Microscopic WBC 3 /hpf (0-5) 09/07/17 18:50 Ur Squamous Epith Cells < 1 /hpf (0-5) 09/07/17 18:50 Urine Bacteria Rare (<OCC) 09/07/17 18:50 - Hospital Course Hospital Course: 71 yo female with history of DMII and HTN admitted at [facility] on 2016 because of dizziness and weakness of the left arm. She was admitted and diagnosed with CVA after MRI showed right sided pontine infarct. She was transferred on 09/04/2017 to [facility] and admitted in Acute Rehab for PT/OT. Patient did well but therapy was not yet completed so she was transferred to [facility] in [facility] for continuation of PT/OT. Discharge Exam - Head Exam Head Exam: NORMAL INSPECTION, NORMOCEPHALIC - Eye Exam Eye Exam: absent: Scleral icterus - ENT Exam ENT Exam: Mucous Membranes Moist - Respiratory Exam Respiratory Exam: absent: Rales, Rhonchi, Wheezes, Respiratory Distress - Cardiovascular Exam Cardiovascular Exam: REGULAR RHYTHM, +S1, +S2 - GI/Abdominal Exam GI & Abdominal Exam: Soft. absent: Tenderness - Rectal Exam Rectal Exam: Deferred - Neurological Exam Neurological exam: Alert, Oriented x3 - Psychiatric Exam Psychiatric exam: Normal Affect - Skin Skin Exam: Dry, Intact Discharge Plan - Follow Up Plan Condition: GOOD Disposition: REHAB FACILITY/REHAB UNIT Referrals: Poonam Mcfarland MD [Primary Care Provider] -
== END 2017-09-28 14:40 | DRG 57 ==
PROVIDERS: ADMIT Internal Medicine; ATTEND Internal Medicine
PROC: F07Z9FZ Gait Training/Functional Ambulation Treatment using Assistive, Adaptive, Supportive or Protective Equipment (ICD-10-PCS; principal; 2017-09-04)
PROC: F07M6FZ Therapeutic Exercise Treatment of Musculoskeletal System - Whole Body using Assistive, Adaptive, Supportive or Protective Equipment (ICD-10-PCS; 2017-09-04)
PROC: F08Z4FZ Home Management Treatment using Assistive, Adaptive, Supportive or Protective Equipment (ICD-10-PCS; 2017-09-04)
DX: I69.354 Hemiplegia and hemiparesis following cerebral infarction affecting left non-dominant side (principal); E11.65 Type 2 diabetes mellitus with hyperglycemia; I16.0 Hypertensive urgency; J06.9 Acute upper respiratory infection, unspecified; K29.70 Gastritis, unspecified, without bleeding; Z90.710 Acquired absence of both cervix and uterus; Z79.84 Long term (current) use of oral hypoglycemic drugs; R09.82 Postnasal drip; R35.0 Frequency of micturition; R47.1 Dysarthria and anarthria; E78.00 Pure hypercholesterolemia, unspecified; E78.5 Hyperlipidemia, unspecified; F32.9 Major depressive disorder, single episode, unspecified; F41.9 Anxiety disorder, unspecified; I10 Essential (primary) hypertension; I65.23 Occlusion and stenosis of bilateral carotid arteries